=== PATIENT | female | born 2005 | race Caucasian/White ===

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

== ENCOUNTER → 2024-01-15 | Outpatient (CLI) | payer MEDICAID, SELFPAY ==
[2024-01-15 08:42] LABS: Hematocrit 42.4 % (37-47); Hemoglobin 13.2 g/dL (12.0-15.0); Mean Corp Hgb Conc 31.1 g/dL (32-36); Mean Corpuscular Hgb 28.9 pg (27.0-32.0); Mean Corpuscular Volume 92.8 fL (81-99); Mean Platelet Vol. 9.9 fl (6.2-12.0); Platelet Count 351 K/mm3 (150-450); RBC Distribution Width CV 13.1 % (11.6-14.6); RBC Distribution Width SD 44.5 fl (35.1-43.9); Red Blood Count 4.57 M/mm3 (4.2-5.4)
[2024-01-15 08:49] LABS: Internal QC Validated? YES +Cl - CLEAR BKGD; Pregnancy, Serum, hCG Quali. NEGATIVE Negative
[2024-01-15 08:55] LABS: Anion Gap 4 (5-15); BUN 8 mg/dL (7-18); BUN/Creat Ratio 10.6 RATIO (10-20); Calcium,Total 9.4 mg/dL (8.5-10.1); Chloride 112 mmol/L (98-107); Creatinine, Serum 0.76 mg/dL (0.55-1.02); EST Glomerular Filtration Rate 104 mL/min (>60); Est Glom Filt Rate - Afr Amer 126 mL/min (>60); Glucose 101 mg/dL (74-106); Potassium 3.5 mmol/L (3.5-5.1); Sodium Level 141 mmol/L (136-145)
--- NOTE | 2024-01-16 08:50 | PCM.TILTTABL ---
Staff Staff: Dora Adhikari Summary Pre Test Resting HR: 88 Pre Test Resting BP: 120/77 Minimum Test HR: 80 Maximum Test HR: 133 Minimum Test BP: 97/60 Maximum Test BP: 137/116 Physician Tilt Table Report Patient's Physicians Primary Care Physician: Dedrick Boone Indications/Diagnosis: Syncope Procedure Comments: The patient was brought to the noninvasive lab in the postabsorptive state. Initial blood pressure as well as heart rate was obtained with EKG. EKG demonstrated sinus rhythm with a rate of 79 bpm. The patient was placed in the 70 degree head upright tilt position. Initial heart rate was 88 bpm with a blood pressure of 120/77 mmHg. The patient was kept in this position for approximately 30 minutes. Continuous EKG and blood pressure monitoring were obtained. Patient experienced symptoms of ears ringing but no significant hemodynamic abnormalities were noted. There was mild depression in the blood pressure to 97/60 with a concomitant increase in the heart rate of 129 bpm. Patient felt mildly lightheaded at that time. Test ended after 30 minutes and post procedure vitals were noted to be normal. Summary: Mild orthostatic changes with tilt table testing. No obvious syncope noted
[2024-01-16 08:54] VITALS: BP 120/77; BP 137/116; BP 97/60
== END | disposition home or self-care (01) ==
LOC: CVS 08:26
PROVIDERS: PCP Internal Medicine; Referring Provider Internal Medicine Cardiovascular Disease; Visit Provider Internal Medicine Cardiovascular Disease
DX: R55 Syncope and collapse (principal); D64.9 Anemia, unspecified
CPT/HCPCS: 36415; 80048; 84703; 85027; 93660; J7040

== ENCOUNTER 2024-02-11 00:10 | Emergency (ER) | payer MEDICAID, SELFPAY ==
[2024-02-11 00:11] VITALS: BP 130/109; PULSE 100; RESP 16; TEMP 36.7; O2SAT 100; BMI 31.5
--- OUTSIDE RECORDS SUMMARY | 2024-02-11 00:34 | XMS RPT_ITS | CCD ---
Author Name Unknown Address [address] [facility] [address] [place] [address] Organization [facility] Care Team Providers Care Information Developer Name Role Phone AMBROCIO TADEO Unavailable Unavailable LINDA, LAURA Unavailable Unavailable LINDA, LAURA Unavailable Unavailable CARLOS MONTE Unavailable Unavailable LINDA, LAURA Unavailable Unavailable LINDA LAURA Unavailable Unavailable Rell Hamilton MD Primary Care Provider [phone] Rell Hamilton MD Primary Care Provider [phone] Rell Hamilton MD Primary Care Provider [phone] RELL HAMILTON Referring Unavailable RELL HAMILTON Primary Care Unavailable Frieda Boone MD Primary Care Provider [phone] Rell Hamilton MD Primary Care Provider OMID GLEASON Referring Unavailable RELL HAMILTON Primary Care Unavailable ЕКАТЕРИНА ROY Attending Unavailable RELL HAMILTON Primary Care Unavailable RELL HAMILTON Attending Unavailable RELL HAMILTON Primary Care Unavailable OMID GLEASON Referring Unavailable RELL HAMILTON Primary Care Unavailable RELL HAMILTON A Primary Care Unavailable ALICIA HAMILTONREY A Primary Care Unavailable RELL HAMILTON Referring Unavailable ALICIA HAMILTONREY A Primary Care Unavailable RELL HAMILTON A Referring Unavailable RELL HAMILTON Attending Unavailable RELL HAMILTON A Primary Care Unavailable RELL HAMILTON A Referring Unavailable ALICIA HAMILTONREY A Primary Care Unavailable ALFONSO, RELL A Primary Care Unavailable GUILLERMINA NETTLES Attending Unavailable RELL HAMILTON Primary Care Unavailable GUILLERMINA NETTLES Referring Unavailable FRIEDA BOONE Primary Care Unavailable CATRACHO HASSAN Attending Unavailable OMID GLEASON Referring Unavailable ALFONSO, RELL A Primary Care Unavailable BENIGNOЕКАТЕРИНА MCCLURE Referring Unavailable RELL HAMILTON Primary Care Unavailable OMID GLEASON Attending Unavailable ONURKEYONASaloni EFEWONGBE B Primary Care Unavailable ONURKEYONASaloni, EFEWONGBE B Primary Care Unavailable OMID GLEASON Referring Unavailable RELL HAMILTON A Primary Care Unavailable OMID GLEASON Referring Unavailable RELL HAMILTON A Primary Care Unavailable RELL HAMILTON A Primary Care Unavailable OMID GLEASON Referring Unavailable DMITRY EFEWONGBE B Primary Care Unavailable OMID GLEASON Attending Unavailable DMITRY, EFEWONGBE B Primary Care Unavailable RELL HAMILTON A Primary Care Unavailable OMID GLEASON Attending Unavailable ROMAN GUILLERMINA Referring Unavailable RELL HAMILTON Primary Care Unavailable OMID GLEASON Referring Unavailable RELL HAMILTON A Primary Care Unavailable RELL HAMILTON Attending Unavailable OMID GLEASON Referring Unavailable RELL HAMILTON A Primary Care Unavailable Allergies Allergy Classification Reported Allergen(s) Allergy Type Date of Onset Reaction(s) Facility (13 sources) Aspirin / oxyCODONE Hydrochloride / oxyCODONE terephthalate; Translations: [OXYCODONE [id number]] Drug [facility] Work Phone: (5 sources) POISON JACLYN EXTRACT; Translations: [POISON JACLYN EXTRACT] Drug Allergy 11-30-2023 Rash [facility] Medications Current Medications Medication Drug Class(es) Dates Sig (Normalized) Sig (Original) methylPREDNISolone (4 sources) Corticosteroid Start: 05-25-2023 End: 05-31-2023 methylPREDNISolone (MEDROL, WOOD,) 4 mg Dose-Pack Follow dosing instructions, take with food. 21 tablet 0 05/25/2023 05/31/2023 Active Completed/Discontinued Medications Medication Drug Class(es) Dates Sig (Normalized) Sig (Original) ascorbic acid 1000 mg oral tablet (8 sources) Vitamin C take 1 tablet by once daily Ascorbic Acid (VITAMIN C) 1,000 mg tablet Take 1,000 mg by mouth once daily. 0 Active Problems Active Problems Problem Classification Problem Date Documented Date Episodic/Chronic Anxiety disorders (20 sources) Mild anxiety; Translations: [Anxiety disorder, unspecified] Onset: 04-14-2023 04-15-2023 Chronic Esophageal disorders (20 sources) Gastroesophageal reflux disease; Translations: [Gastro-esophageal reflux disease without esophagitis] Onset: 05-25-2023 Chronic Headache; including migraine (20 sources) Migraine without aura, not refractory ; Translations: [Migraine without aura, not intractable, with status migrainosus] Onset: 03-06-2018 03-06-2018 Chronic Menstrual disorders (8 sources) Menorrhagia; Translations: [Excessive and frequent menstruation with regular cycle] Onset: 04-20-2023 Chronic Mood disorders (20 sources) Mild depression; Translations: [Mild depression] Onset: 07-04-2018 07-04-2018 Chronic Other aftercare (2 sources) meterman (current) use of hormonal contraceptives; Translations: [meterman (current) use of hormonal contraceptives] Onset: 11-02-2023 Episodic Other lower respiratory disease (1 source) H/O: respiratory disease; Translations: [Personal history of other diseases of the respiratory system] Episodic Other non-traumatic joint disorders (4 sources) Hypermobility of joint; Translations: [Joint derangement, unspecified] Onset: 12-04-2023 12-04-2023 Episodic Other non-traumatic joint disorders (1 source) [...] Bleeds easily; Translations: [Hemorrhagic condition, unspecified] Onset: 06-19-2023 Episodic Contraceptive and procreative management (5 sources) Encounter for surveillance of injectable contraceptive; Translations: [Encounter for initial prescription of contraceptives, unspecified] Onset: 2023 Episodic Deficiency and other anemia (1 source) Iron deficiency anemia, unspecified; Translations: [Iron deficiency anemia, unspecified iron deficiency anemia type] Onset: 09-11-2023 Episodic Immunizations and screening for infectious disease (14 sources) Patient encounter status; Translations: [Encounter for immunization] Onset: 05-25-2023 Episodic Malaise and fatigue (3 sources) Fatigue; Translations: [Other fatigue] Onset: 2023 Episodic Nutritional deficiencies (3 sources) Ascorbic acid deficiency; Translations: [Ascorbic acid deficiency] Onset: 09-11-2023 06-22-2023 Episodic Other and unspecified benign neoplasm (20 [...] Vital Sign Value Performing Clinician Michaela franco 01-18-2024 09:26-0500 Diastolic blood pressure 80 mm[Hg] Nurse Dona Work Phone: [facility] 01-18-2024 09:26-0500 Systolic blood pressure 108 mm[Hg] Nurse Dona Work Phone: [facility] 05-25-2023 15:09-0400 Body weight 92.53 kg Nurse Dona Work Phone: [facility] 05-25-2023 11:17-0400 Body weight 93.44 kg Rell Hamilton MD Work Phone: [facility] 05-25-2023 11:17-0400 Diastolic blood pressure 70 mm[Hg] Rell Hamilton MD Work Phone: [facility] 05-25-2023 11:17-0400 Heart rate 72 /min Rell Hamilton MD Work Phone: [facility] 05-25-2023 11:17-0400 Respiratory rate 16 /min Rell Hamilton MD Work Phone: [facility] 05-25-2023 11:17-0400 Systolic blood pressure 112 mm[Hg] Rell Hamilton MD Work Phone: [facility] 04-06-2023 13:29-0400 Body height 175.8 cm Omid Masci DO Work Phone: [facility] 04-06-2023 13:29-0400 Body temperature 98.29 [degF] Omid Masci DO Work Phone: [facility] 04-06-2023 13:29-0400 Body weight 95.48 kg Omid Masci DO Work Phone: [facility] 04-06-2023 13:29-0400 Diastolic blood pressure 88 mm[Hg] Omid Masci DO Work Phone: [facility] 04-06-2023 13:29-0400 Heart rate 100 /min Omid Masci DO Work Phone: [facility] 04-06-2023 13:29-0400 SaO2% (BldA) [Mass fraction] 96 % Omid Masci DO Work Phone: [facility] 04-06-2023 13:29-0400 Systolic blood pressure 124 mm[Hg] Omid Masci DO Work Phone: [facility] 2023 10:32-0400 Body weight 97.07 kg Guillermina Nettles APRN.LUNCHROOM SUPERVISOR Work Phone: [facility] 2023 10:32-0400 Diastolic blood pressure 64 mm[Hg] Guillermina Nettles APRN.LUNCHROOM SUPERVISOR Work Phone: [facility] 2023 10:32-0400 Heart rate 84 /min Guillermina Nettles APRN.LUNCHROOM SUPERVISOR Work Phone: [facility] 2023 10:32-0400 Respiratory rate 14 /min Guillermina Nettles APRN.LUNCHROOM SUPERVISOR Work Phone: [facility] 2023 10:32-0400 Systolic blood pressure 108 mm[Hg] Guillermina Nettles APRN.LUNCHROOM SUPERVISOR Work Phone: [facility] 04-27-2022 15:52-0400 Body weight 93.44 kg Nurse Wstr Work Phone: [facility] 04-27-2022 15:52-0400 Diastolic blood pressure 76 mm[Hg] Nurse Wstr Work Phone: [facility] 04-27-2022 15:52-0400 Systolic blood pressure 118 mm[Hg] Nurse Wstr Work Phone: [facility] Encounters Encounter Date Encounter Type Care Provider Facility Start: 01-23-2024 Telephone encounter Oni san MD Work Phone: Cardiology Procedures Date Procedure Procedure Detail Performing Clinician Start: 06-07-2023 Us transvaginal Rell Hamilton MD Work Phone: Start: 04-09-2023 Antibody screen OMID SNIDER Plan of Treatment Date Care Activity Detail Author Start: 12-21-2033 Urine microalbumin profile DTa P,Tdap,Td Vaccine (9 - Td or Tdap) [facility] Start: 03-13-2026 Urine microalbumin profile [facility] Start: 05-26-2024 HPV VACCINE (2 - 2-d ose series) HPV VACCINE (2 - 2-dose series) [facility] Immunizations Immunization Date Immunization Notes Care Provider Fa saad 05-19-2022 COVID-19 vaccine, ag e 12+ yr (PFIZER-BIONTECH - ALCANTAR TOP) Nv Nurse Work Phone: [facility] Work Phone: 04-27-2022 COVID-19 vaccine, ag e 12+ yr (PFIZER-BIONTECH - ALCANTAR TOP) Nv Nurse Work Phone: [facility] Work Phone: 06-10-2021 meningococcal polysaccharide (groups A, C, Y and W-135) diphtheria toxoid conjugate vaccine (MCV4P) Nv Nurse Work Phone: [facility] Work Phone: 03-13-2016 diphtheria, tetanus toxoids and acellular pertussis vaccine Mi Nurse Work Phone: [facility] 03-13-2016 meningococcal polysaccharide (groups A, C, Y and W-135) diphtheria toxoid conjugate vaccine (MCV4P) Mi Nurse Work Phone: [facility] 03-13-2016 tetanus toxoid, redu kody diphtheria toxoid, and acellular pertussis vaccine, adsorbed Mi Nurse Work Phone: [facility] Work Phone: 03-13-2008 diphtheria, tetanus toxoids and acellular pertussis vaccine Mi Nurse Work Phone: [facility] 03-13-2008 poliovirus vaccine, inactivated Mi Nurse Work Phone: [facility] 03-11-2008 measles, mumps and rubella virus vaccine Mi Nurse Work Phone: [facility] 03-05-2008 varicella virus vaccine Mi N urse Work Phone: [facility] 10-02-2006 hepatitis A vaccine, unspecified formulation Mi Nurse Work Phone: [facility] 03-19-2006 hepatitis A vaccine, unspecified formulation Mi Nurse Work Phone: [facility] 07-25-2005 diphtheria, tetanus toxoids and acellular pertussis vaccine Mi Nurse Work Phone: [facility] 07-25-2005 pneumococcal conjuga te vaccine, 13 valent Mi Nurse Work Phone: [facility] 07-25-2005 varicella virus vaccine Mi N urse Work Phone: [facility] 03-15-2005 haemophilus influenz ae type b vaccine, HbOC conjugate Mi Nurse Work Phone: [facility] 03-15-2005 hepatitis B vaccine, pediatric or pediatric/adolescent dosage Mi Nurse Work Phone: [facility] Work Phone: 03-15-2005 measles, mumps and rubella virus vaccine Mi Nurse Work Phone: [facility] 2004 poliovirus vaccine, inactivated Mi Nurse Work Phone: [facility] 2004 diphtheria, tetanus toxoids and acellular pertussis vaccine Mi Nurse Work Phone: [facility] 2004 haemophilus influenz ae type b vaccine, HbOC conjugate Mi Nurse Work Phone: [facility] 2004 pneumococcal conjuga te vaccine, 13 valent Mi Nurse Work Phone: [facility] 2004 diphtheria, tetanus toxoids and acellular pertussis vaccine Mi Nurse Work Phone: [facility] 2004 haemophilus influenz ae type b vaccine, HbOC conjugate Mi Nurse Work Phone: [facility] 2004 pneumococcal conjuga te vaccine, 13 valent Mi Nurse Work Phone: [facility] 2004 poliovirus vaccine, inactivated Mi Nurse Work Phone: [facility] 2004 diphtheria, tetanus toxoids and acellular pertussis vaccine Mi Nurse Work Phone: [facility] 2004 poliovirus vaccine, inactivated Mi Nurse Work Phone: [facility] 2004 haemophilus influenz ae type b vaccine, HbOC conjugate Mi Nurse Work Phone: [facility] 2004 hepatitis B vaccine, pediatric or pediatric/adolescent dosage Mi Nurse Work Phone: [facility] Work Phone: 2004 pneumococcal conjuga te vaccine, 13 valent Mi Nurse Work Phone: [facility] 2004 hepatitis B vaccine, pediatric or pediatric/adolescent dosage Mi Nurse Work Phone: [facility] Work Phone: Payers Date Payer Category Payer Medicaid [employer] [employer] [id number] 2022-Present [phone] [address] [place] [address] Medicaid [id number] 2022 Medicaid [id number] 2021 Private Health Insurance TAMY AMARALP [id number] 2021-Present [phone] [address] [place] [address] Open Access [id number] 2021 Private Health Insurance TAMY BARGER OAP [id number] 2021-Present [phone] [address] [place] [address] Open Access [id number] Private Health Insurance [id number] Social History Date Type Detail Facility Start: 11-25-2012 End: 07-11-2022 Tobacco smoking status NHIS Never smoked tobacco [facility] Start: 11-25-2012 End: 07-11-2022 Tobacco use and exposure Smokeless tobacco non-user [facility] Start: 02-07-2022 End: 01-18-2024 Alcohol intake Current non-drinker of alcohol (finding) [facility] Start: 2004 Sex Assigned At Not on file C [facility] Start: 04-17-2022 End: 04-27-2022 Exposure to SARS-CoV-2 (event) Not sure [facility] Start: 02-21-2023 History SDOH Alcohol Frequency 1 [facility] Start: 02-21-2023 History SDOH Alcohol Std Drinks 0 [facility] Start: 02-21-2023 History SDOH Social Connections Phone 5 [facility] Start: 02-21-2023 History SDOH Social Connections [facility] Start: 02-21-2023 History SDOH Social Connections Living 7 [facility] Start: 02-21-2023 History SDOH Physica l Activity MPS 15 [facility] Start: 02-21-2023 History SDOH Stress 2 [facility] Start: 02-21-2023 History SDOH Financial 4 [facility] Start: 2004 Sex Assigned At Female C [facility] Start: 02-21-2023 End: 04-06-2023 History of Social function [facility] Start: 02-21-2023 End: 04-06-2023 Social connection and isolation panel [facility] Do you belong to any clubs or organizations such as orthodox groups, unions, fraternal or athletic groups, or school groups? Yes [facility] Are you now , , , , never or living with a partner? Never [facility] How often to you hav e a drink containing alcohol? Never [facility] How many standard dr inks containing alcohol do you have on a typical day? Patient does not drink [facility] How hard is it for y ou to pay for the very basics like food, housing, medical care, and heating Not very hard [facility] Do you feel stress - tense, restless, nervous, or anxious, or unable to sleep at night because your mind is troubled all the time - these days [OSQ] Only a little [facility] (I/We) worried wheth er (my/our) food would run out before (I/we) got money to buy more. Never true [facility] In the past 12 month s, was there a time when you were not able to pay the mortgage or rent on time? No [facility] Start: 02-21-2023 Gender identity Identifies as female gender (finding) [facility] Start: 02-21-2023 Sexual orientation Heterosexual (jason covarrubias) [facility] Clinical Notes 04-27-2022 to 01-23-2024 Telephone Encounter - Miriam Love - 01/23/2024 4:08 PM Stephie Barr RN - 01/18/2024 9:19 AM ESTTelephone Encounter - Stephie Lopez RN - 01/15/2024 11:43 AM ESTPatient Instructions Note Date & Type Note Facility 01-23-2024 Miscellaneous Notes Referral and outside medical records scanned into [employer]. Referral routed to appointment desk for appropriate scheduling. documented in this encounter [facility] 01-18-2024 Note HNO ID: [id number] Author: STEPHIE LOPEZ RN Service: ? Author Type: Registered Nurse Type: Progress Notes Filed: 01/18/2024 09:31 Note Text: Patient identified by name and date of . Lu Timmons is here for a Depo Provera injection. Patient brought medication. Date last injected: 11/02/23 at [facility] Depo-Provera, 150 mg, administered IM left upper quadrant gluteus, Lot # [id number], expiration date 04/25/2025. Depo-Provera was given without incident. Date of last menses: Patient's last menstrual period was 03/10/2021 (within days). Irregular bleeding - No Menses ceased - Yes STD prevention discussed: Yes Patient instructed to return to clinic on 11 WEEKS. [email or web address] Provider Dr. Cavazos was present in office at time of injection. Stephie Lopez RN [facility] 01-18-2024 History of Present illness Narrative Patient identified by name and date of . Lu Timmons is here for a Depo Provera injection. Patient brought medication. Date last injected: 11/02/23 at [facility] Depo-Provera, 150 mg, administered IM left upper quadrant gluteus, Lot # [id number], expiration date 04/25/2025. Depo-Provera was given without incident. Date of last menses: Patient's last menstrual period was 03/10/2021 (within days). Irregular bleeding - No Menses ceased - Yes STD prevention discussed: Yes Patient instructed to return to clinic on 11 WEEKS. [email or web address] Provider Dr. Cavazos was present in office at time of injection. Stephie Lopez RN documented in this encounter [facility] 01-15-2024 Miscellaneous Notes Annual scheduled 04/10/24 and next depo is 01/18/24. [facility] and she is home this week. [facility] unable to transfer. Requested Prescriptions Pending Prescriptions Disp Refills medroxyPROGESTERone (DEPO-PROVERA) 150 mg/mL 1 mL 0 Sig: use as directed at physician's office EVERY 11 WEEKS Stephie Lopez RN documented in this encounter [facility] 12-04-2023 Note HNO ID: [id number] Author: CATRACHO HASSAN PT Service: ? Author [...] PHYSICAL THERAPY EVALUATION PLAN OF CARE: Assessment: Lu Timmons presents with diagnosis of hypermobility that [...] of Visits Planned: 1 Planned Treatment Interventions: Self-jail management (20985) PLAN FOR NEXT VISIT: none, discharged Patient [...] she needs to. 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 Patient also has Reynauds, this causes more joint issues when it is cold. Patient would like to receive measurements for possible hypermobility today, and is not seeking a fdc physical therapy plan of care Functional Limitations: [...] Plan of Care TREATMENT: PT Treatment Interventions: Self-Longterm Management Evaluation Self-Longterm Management: 1: Discussed todays exam, possible clinical [...] 1002 Session Stop Time : 1035 Catracho Hassan, JENNIFER [facility] 11-30-2023 Miscellaneous Notes Check out comments: Referral to PT here. Follow up to be scheduled pending results. LM for patient to return call. When she calls, please advise that the order is fixed and we can schedule her here with Catracho as directed by Dr. Gleason and geovanny. Nohemy Weeks documented in this encounter [facility] 11-30-2023 Note HNO ID: [id number] Author: OMID GLEASON, DO Service: ? Author [...] No hemarthrosis. Excision left temporal lesion in [id number]. No bleeding. Underwent surgery for left knee [...] knee. Was seen by vascular surgery at [facility]. ABIs were normal bilaterally. Duplex ultrasound both [...] for [place] hypermobility assessment. -Echocardiogram scheduled at [facility]. -Possible genetic counseling referral based on above [...] to see the patient (reviewing records via [facility] electronic record), [id number] patient care, completing clinical documentation, obtaining and/or reviewing separately obtained history, performing a medically appropriate examination, counseling and educating the patient/family/caregiver, ordering medications, tests, or procedures, communicating with other HCPs (not separately reported), and communicating results to the patient/family/caregiver. Omid Gleason, DO [facility] 11-02-2023 Miscellaneous Notes Annual scheduled with DM 04/10/23. She is away at [facility] and that was first available that she will be home. Only wanted to see DM. Requested Prescriptions Pending Prescriptions Disp Refills medroxyPROGESTERone (DEPO-PROVERA) 150 mg/mL 1 mL 1 Sig: use as directed at physician's office EVERY 11 WEEKS Stephie Lopez RN documented in this encounter [facility] 10-31-2023 Miscellaneous Notes Records from mother received. Dr. Gleason will not send a referral because we have not seen the patient for this issue. I did forward the outside records on to [facility] and notify patient's mother that I did so. Caryl Fletcher LPN Patient was seen in the ED in [place] 10/23/2023 to r/o DVT d/t right leg pain. Venous duplex on 10/24/2023 was negative. Random bruising continues. 10/30/2023- right leg pain continued, went to urgent care in [place]. They recommended a referral to cardiology (patient was already scheduled) and to vascular surgery. PCP won't refer patient without an OV and patient can't be seen there until mid November. Patient is scheduled to see [facility] and patient's mother is asking that we send a referral. Patient's mother is faxing records from [place]. Caryl Fletcher LPN Mother called stating patient needs a referral for vascular surgeon. Patient was at an urgent care in [place] and they stated she needs this referral. They did not give her one. Mother called and scheduled appointment with [facility] and they are requesting a referral - diagnosis: positive for myalgia- r leg pain. Please fax to [phone] documented in this encounter [facility] 10-17-2023 Miscellaneous Notes Noted. Thank you. Omid Gleason DO Patient called in today wanting to let know that she was scheduled to see Dr.Cyril Baez today and they called her to reschedule due to an emergency. She is now scheduled to see him 11/14/23. Diamond Lopez Pss documented in this encounter [facility] 09-17-2023 Miscellaneous Notes Message sent to [...] will send a note to Dr. [facility] to see if she has any further thoughts on testing for other causes for her bleeding. Omid Gleason DO documented in this encounter [facility] 09-11-2023 Note HNO ID: [id number] Author: Omid Gleason DO Service: ? Author [...] No hemarthrosis. Excision left temporal lesion in [id number]. No bleeding. Bruises easily. Takes Mobic prn. [...] time. PAST MEDICAL HISTORY Diagnosis Date Adjustment disorder [facility] Migraine without aura and with status migrainosus, not intractable 03/06/2018 Mild anxiety 04/14/2023 Mild depression 07/04/2018 Multiple atypical nevi 07/04/2018 PAST SURGICAL HISTORY Procedure Laterality Date KNEE SURGERY HX Left 04/27/2021 KNEE SURGERY HX Right 01/2022 REMOVAL OF SKIN LESION Left 2008 face- removed by [facility] ALLERGIES Allergen Reactions Oxycodone Hcl-Oxyco* Hives [...] nondistended. No organo (more content not included)... [facility] 08-23-2023 Miscellaneous Notes Patient called needing order faxed to [facility] at [facility] at [phone]. Orders faxed. Confirmation scanned into [facility]. Nohemy Weeks Filed. Omid Gleason DO Please file order. Caryl Fletcher LPN Patient called back stating that she can have CBC drawn at school. Please fax order to [phone] Message relayed. Scheduled with patient LM for patient to return call. When she calls, please relay Dr. Gleason's message below and schedule. Nohemy Weeks I'm concerned about these random episodes of feeling if she is going to pass out. I suggest she go to the [facility]. Perhaps they can run a CBC at [...] states she will possibly be home from [place] on 09/04/23. Beatrice Mclaughlin LPN Patient called stating she has been having really bloody gums again and is asking if she is to see Dr. Gleason or if she needs to contact Dr. Roy at [facility]. documented in this encounter [facility] 06-22-2023 Miscellaneous Notes Pt. Notified vitamin [...] Omid Gleason DO documented in this encounter [facility] 06-19-2023 Note HNO ID: [id number] Author: Екатерина Roy DO Service: ? Author Type: Physician Type: Progress Notes Filed: 06/19/2023 6:14 PM Note Text: Hematologic Oncology and Blood Disorders PATIENT NAME: Lu Timmons DATE OF : 2005 ATTENDING STAFF: Nicolle Roy DO DATE OF SERVICE: June 19, 2023 REASON FOR CONSULT: Easy Bruising REQUESTING PHYSICIAN: Omid Gleason [address] [facility] [place] [address] HISTORY OF PRESENT ILLNESS: This patient was seen at the request of Dr. Omid Gleason for consultation with hematology regarding easy bruising. History was obtained from the patient and from review of the patient?s old medical records. Lu Timmons is a 18 year old female here today with her mother, Chika. She has a past medical history that is pertinent for anxiety, depression, migraines and recurrent meniscal knee injuries. As a child she had a benign skin lesion removed with sutures at [facility] at the time associated with [facility] on her face in 2008 without any [...] medroxyPROGESTERone 150 mg injection (DEPO-PROVERA) PREFERRED PHARMACY: [facility][id number] - [place] [address] - [address] [place] [address] - [phone] [id number] [address] [facility] [place] [address] [place]- [facility] [place] [address] - [address] - [phone] [facility] [address] PAST MEDICAL HISTORY Diagnosis Date Adjustment disorder [facility] Migraine without aura and with [...] Hyperlipidemia Maternal Grandfather (more content not included)... [facility] 06-12-2023 Miscellaneous Notes Surgery clearance form along with Dr. Gleason note has been faxed to Dr. Nava office. Spoke with Mi @ Dr. Nava office ,received fax and will discuss with dr. Nava. Sienna Laguna LPN Spoke with patient and mother. Lu's von Willebrand panel suggested no evidence of von Willebrand disease. Platelet function screening on that panel suggested normal closure times indicating normal platelet function. Testing was carried a step further with a platelet aggregation test which was normal. Both her aPTT and PT were normal. I had recommended further testing but per our discussion this evening, since Lu changed the dosing schedule of her iron, [...] also POA) is requesting a call at [phone] Spoke with pt. Given a different number. Sienna Laguna LPN Patient called stating she is not able to get an answer from the phone number listed below. Please advise. Contacted client services concerning lab test ordered by Dr. Gleason, but to be done at [facility], to see if there are any specific dates or times for labs to be done.Spoke with Tomeka Kirk drawn daily Reptilase mon-fri Platelet Flow by appt. Only needs scheduled 24 hrs. In advance [phone] Platelet transmission mon-fri Fibrinogen activity send out [...] to functional fibroginogen? Sienna Laguna LPN The student activities director she is going to see at [facility] next week suggested some other lab tests. Rather than weight to see her, I placed stat orders for that lab work but she will have to go to [facility] lab to have them drawn. I suggest we have someone from our lab double check with [facility] as to any restrictions as far as time or days of the week that these labs are drawn. Myles cannot clear her for upcoming surgery scheduled on the . It will have to be rescheduled. Omid Gleason DO documented in this encounter [facility] 06-07-2023 Note HNO ID: [id number] Author: Margarette Chua RDMS Service: ? Author Type: Chief Security Officer Type: Progress Notes Filed: 06/07/2023 2:08 PM Note Text: Radiology Service Progress Note PATIENT NAME: Lu Timmons DATE OF SERVICE: June 07, 2023 [...] RDMS RVT June 07, 2023 2:08 PM [facility] 06-07-2023 History of Present illness Narrative Radiology Service Progress Note PATIENT NAME: Lu Timmons DATE OF SERVICE: June 07, 2023 [...] 2023 2:08 PM documented in this encounter [facility] 06-07-2023 Miscellaneous Notes Message relayed to patient Message left for patient to contact office. Caryl Fletcher LPN Can let her know that the most recent lab testing shows some mild abnormality but I do not think those are clinically meaningful and contributing to her bleeding issue. Still awaiting one of the fibrinogen tests. I sent a note to one of the student activities director at [facility] to look things over so we may be able to keep her surgery scheduled for next week but as of right now I am not certain she can be cleared for it until we know whether or not there is a hematologic issue with her clotting capability. Omid Gleason DO documented in this encounter [facility] 06-04-2023 Miscellaneous Notes Spoke with pt and reviewed results and instructions from Dr Hamilton. States she scheduled what she was told to schedule. Advised her this nurse apologizes but pelvic US was not done. Pt was transferred to [facility] to schedule US. Samm Dill LPN Let [...] Kellie Warren RN documented in this encounter [facility] 06-01-2023 Miscellaneous Notes Spoke to patient and she will get US done and call to schedule Katy Saenz Ma Let patient know insurance is not going to cover and abdominal and pelvic CT. I have placed orders for a Abdominal US and pelvic US to eval her lower abdominal pain and weight loss. documented in this encounter [facility] 05-28-2023 Miscellaneous Notes Spoke with patient. Given message from provider's office. Patient verbalizes understanding. Yaneth Marshall RN Left message for patient to return call to office Jacquelin Javier Cma Let patient know her recent labs were all normal. documented in this encounter [facility] 05-28-2023 Miscellaneous Notes Patient returned call and wanted to schedule at [facility]. Transferred her to Cancer Answer line for scheduling. Nohemy Weeks Spoke with pt. Given information concerning lab results. Also sent information to pt. Via my chart. She will discuss with her mother and get back with us as far as scheduling appt. With Weapons Specialist at [facility]. Sienna Laguna LPN Can let her [...] it is best we refer her to [facility] hematology for any further work-up of bleeding problems. I have not been able to find anything obvious and the next steps are seeing someone who specializes further in bleeding disorders than I do. Also lab work can be done there onsite if needed. Omid Gleason DO [facility] Care Coordination FOLLOW-UP NOTE Spoke with Mom, questions answered. She ask that I speak with Lu regarding symptoms, etc. Spoke with patient and [...] repeat labs on Sunday, we will verify sharepoint designer developer for Sunday, we will call back with results and most likely refer to a student activities director at [facility] for consult. Patient states understanding and denies further questions. Call to lab and spoke with Lily, they have heard from sharepoint designer developer and all set to be her on 05/21/23 at 8am. Mi Blankenship RN Patient's mother/POA called in over frustrations re: issues with getting the platelet aggregation done as well as knowing what the plan of action is for the patient. Platelet aggregation is being rescheduled for 05/21/23 with a sharepoint designer developer. This PSS will contact the patient directly to schedule the lab draw and will coordinate the sharepoint designer developer. Platelet aggregation order WAS refiled. This PSS spoke with patient and rescheduled the lab and then spoke with laborer/grade check to coordinate sharepoint designer developer. entry level installation technician will coordinate sharepoint designer developer and document in appointment notes that sharepoint designer developer is scheduled. Lab to be drawn on [...] advise. Nohemy Weeks documented in this encounter [facility] 05-25-2023 Note HNO ID: [id number] Author: Marlys Billings LPN Service: ? Author Type: ? Type: Progress Notes Filed: 05/28/2023 7:25 AM Note Text: Patient identified by name and date of . Intake information documented in the prior visit with Dr. Hamilton today. Lu Timmons is here for a Depo Provera injection. Patient brought medication. Date last injected: 2023 Depo-Provera, 150 mg, administered IM right upper quadrant gluteus, Lot # [id number], expiration date 01/23/2025. Depo-Provera was given without incident. Date of last menses: Patient's last menstrual period was 03/10/2021 (within days). Irregular bleeding - No Menses ceased - Yes STD prevention discussed: Yes Patient instructed to return to clinic in 11 weeks. [email or web address] Provider Leidy Carr was present in office at time of injection. Marlys Billings LPN [facility] 05-25-2023 Miscellaneous Notes Called [facility] and spoke with Scottie in the pharmacy and explained that pt wanted to put a prescription in for the OTC dose of K+ to see if her insurance would cover it. Since it does not, the pharmacy just needs to let the pt know when she comes to brain picker the medication. Let pharmacist know that patient was wanting provider to send in script for the OTC form of her potassium 99 to see if insurance covered it. If that is not the case then just let patient know this when she picks up the script. Farhan pharmacist from [facility] Valentín calling with question regarding K+ prescription that was sent in this morning. He states K+ citrate 99 mg was ordered and it does not come that way. He says that is the OTC dose which is only 1-2 percent of daily need. If 99 mg is what provider wants, it needs to be K+ Gluconate 99 mg. documented in this encounter [facility] 05-25-2023 History of Present illness Narrative Patient identified by name and date of . Intake information documented in the prior visit with Dr. Hamilton today. Lu Timmons is here for a Depo Provera injection. Patient brought medication. Date last injected: 2023 Depo-Provera, 150 mg, administered IM right upper quadrant gluteus, Lot # [id number], expiration date 01/23/2025. Depo-Provera was given without incident. Date of last menses: Patient's last menstrual period was 03/10/2021 (within days). Irregular bleeding - No Menses ceased - Yes STD prevention discussed: Yes Patient instructed to return to clinic in 11 weeks. [email or web address] Provider Leidy Carr was present in office at time of injection. Marlys Billings LPN documented in this encounter [facility] 05-25-2023 Note HNO ID: [id number] Author: Rell Hamilton MD Service: ? Author Type: Physician Type: Progress Notes Filed: 05/25/2023 5:06 PM Note Text: Chief Complaint Patient presents with: Follow Up HPI Lu Timmons is a 18 year old female [...] fatigue. Seems daily. 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- 10 [...] PAST MEDICAL HISTORY Diagnosis Date Adjustment disorder [facility] Migraine without aura and with status migrainosus, not intractable 03/06/2018 Mild anxiety 04/14/2023 Mild depression 07/04/2018 Multiple atypical nevi 07/04/2018 Previous Surgical History PAST SURGICAL HISTORY Procedure Laterality Date KNEE SURGERY HX Left 04/27/2021 KNEE SURGERY HX Right 01/2022 REMOVAL OF SKIN LESION Left 2008 face- removed by oBaz Family History FAMILY HISTORY Problem Relation Age [...] nourished.. Neck: Supple, (more content not included)... [facility] 05-25-2023 History of Present illness Narrative Chief Complaint Patient presents with: Follow Up HPI Lu Timmons is a 18 year old female [...] fatigue. Seems daily. 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- 10 [...] PAST MEDICAL HISTORY Diagnosis Date Adjustment disorder [facility] Migraine without aura and with status migrainosus, not intractable 03/06/2018 Mild anxiety 04/14/2023 Mild depression 07/04/2018 Multiple atypical nevi 07/04/2018 Previous Surgical History PAST SURGICAL HISTORY Procedure Laterality Date KNEE SURGERY HX Left 04/27/2021 KNEE SURGERY HX Right 01/2022 REMOVAL OF SKIN LESION Left 2008 face- removed by [facility] [employer] Family History FAMILY HISTORY Problem Relation Age [...] Rell Hamilton MD documented in this encounter [facility] 05-24-2023 Miscellaneous Notes Order filed. Felicita Anthony APRN.CINTHYA Please see pended order below for MAR. Pt coming in 05/25/23. Mary Ellen Koehler LPN documented in this encounter [facility] 05-18-2023 Miscellaneous Notes Spoke with patient and scheduled lab and then coordinated medical lab tech instructor with [employer], who will also document in appointment note that courer is scheduled once it is scheduled. Nohemy Weeks Order filed. Omid Gleason DO Pt came in today for a lab draw. She was checked in, but the lab turned her away as a medical lab tech instructor was not scheduled for brain picker. I have placed the order again. PSS please schedule a lab apt with pt and then notify the lab so they can arrange sharepoint designer developer! Thanks Beatrice documented in this encounter [facility] 05-01-2023 Note HNO ID: [id number] Author: Samm Dill LPN Service: ? Author Type: ? Type: Progress Notes Filed: 05/01/2023 7:22 AM Note Text: . [facility] 05-01-2023 History of Present illness Narrative . documented in this encounter [facility] 04-30-2023 Note HNO ID: [id number] Author: Thao Dotson MA Service: ? Author Type: Art Museum Aide Type: Progress Notes Filed: 04/30/2023 5:03 PM Note Text: Scan on 04/26/2023 2:36 PM by External Provider, PERICOC: Miscellaneous Lab Thao Dotson MA [facility] 04-30-2023 History of Present illness Narrative Scan on 04/26/2023 2:36 PM by External Provider, MICHAEL: Miscellaneous Lab Thao Dotson MA documented in this encounter [facility] 04-25-2023 Miscellaneous Notes Lab scheduled Spoke [...] Omid Gleason DO documented in this encounter [facility] 04-16-2023 Note HNO ID: [id number] Author: Cathryn Schultz APRN.LUNCHROOM SUPERVISOR Service: ? Author Type: Nurse Practitioner Type: Progress Notes Filed: 04/16/2023 12:23 PM Note Text: Subjective The history is provided by the patient. No hotel general manager was used. JOAQUÍN Timmons is a 18 [...] use: No PAST MEDICAL HISTORY Diagnosis Date Adjustment disorder [facility] Migraine without aura and with status migrainosus, not intractable 03/06/2018 Mild anxiety 04/14/2023 Mild depression 07/04/2018 Multiple atypical nevi 07/04/2018 I have confirmed and edited as necessary, the [facility] Review of Systems Constitutional: Negative for [...] detail warranting prompt ER evaluation. Cathryn Schultz APRN.[facility] 04-14-2023 Note HNO ID: [id number] Author: Rell Hamilton MD Service: ? Author Type: Physician Type: Progress Notes Filed: 04/15/2023 12:33 PM Note Text: Chief Complaint Patient presents with: Recheck: Fatigue, nose bleeds HPI Lu Timmons is a 18 year old female [...] fatigue. Seems daily. 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 [facility] 04-06-2023 Note HNO ID: [id number] Author: Omid Gleason, DO Service: ? Author [...] No hemarthrosis. Excision left temporal lesion in [id number]. No bleeding. Bruises easily. Takes Mobic prn. Always fatigued. PAST MEDICAL HISTORY Diagnosis Date Adjustment [facility] Migraine without aura and with status migrainosus, not intractable 03/06/2018 Mild depression 07/04/2018 Multiple atypical nevi 07/04/2018 PAST SURGICAL HISTORY Procedure Laterality Date KNEE SURGERY HX Left 04/27/2021 KNEE SURGERY HX Right 01/2022 REMOVAL OF SKIN LESION Left 2008 face- removed by Hang w/ ALLERGIES No Known Allergies Current Outpatient Medications [...] rash. No petechiae. No obvious ecchymoses. NEUROLOGIC: vulcanizing machine operator II-XII are grossly intact. No focal motor weakness. LABORATORY DATA: Component Latest Ref Rng AND Units 2023 Iron 41 - 186 ug/dL 38 (L) TIBC 232 - 386 ug/dL 331 Transferrin Saturation 15.0 - 57.0 % 11.5 (L) Ferritin 14.7 - 205.1 ng/mL 91.6 V (more content not included)... [facility] 04-06-2023 History of Present illness Narrative Patient [...] No hemarthrosis. Excision left temporal lesion in 5939-2160. No bleeding. Bruises easily. Takes Mobic prn. Always fatigued. PAST MEDICAL HISTORY Diagnosis Date [facility] Migraine without aura and with status migrainosus, not intractable 03/06/2018 Mild depression 07/04/2018 Multiple atypical nevi 07/04/2018 PAST SURGICAL HISTORY Procedure Laterality Date KNEE SURGERY HX Left 04/27/2021 KNEE SURGERY HX Right 01/2022 REMOVAL OF SKIN LESION Left 2008 face- removed by Hang w/ ALLERGIES No Known Allergies Current Outpatient Medications [...] rash. No petechiae. No obvious ecchymoses. NEUROLOGIC: vulcanizing machine operator II-XII are grossly intact. No focal motor [...] a recent CBC in February at the [facility] that revealed a platelet count of 430,000 [...] which included preparing to see the patient, [id number] patient care, completing clinical documentation, obtaining and/or reviewing separately obtained history, performing a medically appropriate examination, counseling and educating the patient/family/caregiver, ordering medications, tests, or procedures, communicating with other HCPs (not separately reported), and communicating results to the patient/family/caregiver. Omid Gleason DO documented in this encounter [facility] 03-13-2023 Miscellaneous Notes Received pt's lab results. Samm Dill LPN Scan on 03/13/2023 10:02 AM by External Provider: Miscellaneous Lab documented in this encounter [facility] 03-12-2023 Miscellaneous Notes I called and [...] you. Jocelyn SHAIKH documented in this encounter [facility] 03-12-2023 Miscellaneous Notes Patient notified and [...] high fiber diet. documented in this encounter [facility] 2023 Note HNO ID: [id number] Author: Marlys Billings LPN Service: ? Author Type: ? Type: Progress Notes Filed: 2023 1:27 PM Note Text: The patient is here for an injection of Depoprovera. Dose: 150 mg. Route: Intramuscular Site: left upper quadrant gluteus Next injection due: 05/25/2023- 11 weeks See Mar for medication documentation Marlys Billings LPN [facility] 2023 Note HNO ID: [id number] Author: Guillermina Nettles APRN.CINTHYA Service: ? Author Type: Nurse Practitioner Type: Progress Notes Filed: 2023 11:10 AM Note Text: Chief Complaint Patient presents with: Follow Up HPI Lu Garrett is a 18 year old female [...] PAST MEDICAL HISTORY Diagnosis Date Adjustment disorder [facility] Migraine without aura and with status migrainosus, not intractable 03/06/2018 Mild depression 07/04/2018 Multiple atypical nevi 07/04/2018 Previous Surgical History PAST SURGICAL HISTORY Procedure Laterality Date KNEE SURGERY HX Left 04/27/2021 REMOVAL OF SKIN LESION Left 2008 face- removed by [facility] Family History FAMILY HISTORY Problem Relation Age [...] - FAMOTIDINE 20 MG TABLET Guillermina Nettles APRN.[facility] 2023 Instructions Guillermina Nettles APRN.CNP - 2023 11:10 AM EDT Complete lab work Start famotidine Follow up in [address] Hamilton documented in this encounter [facility] 2023 History of Present illness Narrative Chief Complaint Patient presents with: Follow Up HPI Lu Garrett is a 18 year old female [...] History PAST MEDICAL HISTORY Diagnosis Date Adjustment [facility] Migraine without aura and with status migrainosus, [...] series) due on 01/04/2019 GC (GONORRHEA) SCREENING () Never done HEPATITIS C SCREENING Never done HIV SCREENING Never done CHLAMYDIA SCREENING () Never done COVID-19 VACCINE(3 - Booster for [...] - FAMOTIDINE 20 MG TABLET Guillermina Nettles APRN.CINTHYA documented in this encounter [facility] 03-02-2023 Miscellaneous Notes Next depo scheduled for 03/09/23. Requested Prescriptions Pending Prescriptions Disp Refills medroxyPROGESTERone (DEPO-PROVERA) 150 mg/mL 1 mL 2 Sig: use as directed at physician's office EVERY 11 WEEKS Stephie Lopez RN documented in this encounter [facility] 02-23-2023 Note HNO ID: [id number] Author: Rell Hamilton MD Service: ? Author Type: Physician Type: Progress Notes Filed: 02/23/2023 8:33 PM Note Text: This is a virtual encounter. It required patient-provider interaction for the medical decision making as documented below. The patient is identified by name and birthday. Patient location: [facility] The patient consented to this type of encounter since it was performed by phone / virtually due to the COVID-19 epidemic as an effort to protect patients and minimize exposure. Chief Complaint Patient presents with: constant illnesses, nose bleeds, HPI Lu Garrett is a 17 year old female [...] PAST MEDICAL HISTORY Diagnosis Date Adjustment disorder [facility] Migraine without aura and with [...] the ENT she was referred to in [place] 2. History of frequent URI - ICD9: V12.69, ICD10: Z87.09 Check - TSH BLD - COMP METABOLIC PANEL - T4 FREE/FREE THYROX - COMPLEMENT DEFICIENCY ASSAY 3. Fatigue, unspecified type - ICD9: 780.79, ICD10: R53.83 Check - TSH BLD - COMP METABOLIC PANEL - CBC + DIFF - T4 FREE/FREE THYROX Rell Hamilton MD [facility] 02-23-2023 History of Present illness Narrative This is a virtual encounter. It required patient-provider interaction for the medical decision making as documented below. The patient is identified by name and birthday. Patient location: [facility] The patient consented to this type of encounter since it was performed by phone / virtually due to the COVID-19 epidemic as an effort to protect patients and minimize exposure. Chief Complaint Patient presents with: constant illnesses, nose bleeds, HPI Lu Garrett is a 17 year old female [...] PAST MEDICAL HISTORY Diagnosis Date Adjustment disorder [facility] Migraine without aura and with [...] the ENT she was referred to in [place]. History of frequent URI - ICD9: V12.69, ICD10: Z87.09 Check - TSH BLD - COMP METABOLIC PANEL - T4 FREE/FREE THYROX - COMPLEMENT DEFICIENCY ASSAY 3. Fatigue, unspecified type - ICD9: 780.79, ICD10: R53.83 Check - TSH BLD - COMP METABOLIC PANEL - CBC + DIFF - T4 FREE/FREE THYROX Rell Hamilton MD documented in this encounter [facility] 12-21-2022 Note Pt here for depo joceline t. Scheduled next shot upon departure. [facility] 07-10-2022 Miscellaneous Notes Patient is coming in for her Depo shot tomorrow (07-11) and needs her script sent. Please call her at [phone] when sent. documented in this encounter [facility] 05-19-2022 History of Present illness Narrative Patient presents for COVID vaccine. Denies any problems at this time. Tolerated injection well. Jocelyn Monroy LPN documented in this encounter [facility] 04-27-2022 History of Present illness Narrative Patient identified by name and date of . Lu Timmons is here for a Depo Provera injection. Patient brought medication. Date last injected: 02/07/22 Depo-Provera, 150 mg, administered IM left upper quadrant gluteus, Lot # [id number], expiration date 01/23/2024. Depo-Provera was given without incident. Date of last menses: Patient's last menstrual period was 03/10/2021 (within days). Irregular bleeding - No Menses ceased - Yes STD prevention discussed: Yes Patient instructed to return to clinic in 12 weeks. [email or web address] Provider Veena Cavazos DO was present in office at time of injection. Sultana Leigh RN documented in this encounter [facility] 04-27-2022 History of Present illness Narrative Patient presents for COVID vaccine. Denies any problems at this time. Tolerated injection well. Jocelyn Monroy LPN documented in this encounter [facility] Encounter for management and injection of depo-Provera- Primary Surveillance of other previously prescribed contraceptive method [facility] Diagnosis Encounter for immunization- Primary Need for other specified prophylactic vaccination against single bacterial disease [facility] Diagnosis Encounter for management and injection of depo-Provera Surveillance of other previously prescribed contraceptive method Menorrhagia with regular cycle Excessive or frequent menstruation [facility] Diagnosis Bleeding from the nose- Primary Epistaxis History of frequent URI Fatigue, unspecified type [facility] Diagnosis Encounter for management and injection of depo-Provera Surveillance of other previously prescribed contraceptive method Menorrhagia with regular cycle Excessive or frequent menstruation [facility] Diagnosis Fatigue, unspecified type- Primary Family history of cancer in mother Gastroesophageal reflux disease, unspecified whether esophagitis present [facility] Diagnosis Menorrhagia with irregular cycle- Primary Excessive or frequent menstruation Epistaxis Family history of cancer in mother [facility] Diagnosis Epistaxis- Primary Menorrhagia with irregular cycle Excessive or frequent menstruation [facility] Diagnosis Menorrhagia with irregular cycle- Primary Excessive or frequent menstruation Epistaxis [facility] Diagnosis Encounter for management and injection [...] single bacterial disease [facility] Diagnosis Mild anxiety- Primary Anxiety state, unspecified Mild depression Depressive disorder, not elsewhere classified Gastroesophageal reflux disease, unspecified whether esophagitis present Weight loss, unintentional Loss of weight Lower abdominal pain Abdominal pain, other specified site Rash Rash and other nonspecific skin eruption documented in this encounter [facility] note* Diagnosis Encounter for management and injection of depo-Provera- Primary Surveillance of other previously prescribed contraceptive method documented in this encounter [facility] note* Diagnosis Bleeding diathesis (HCC)- Primary Unspecified hemorrhagic conditions [facility] Diagnosis Lower abdominal pain- Primary Abdominal pain, other specified site Weight loss, unintentional Loss of weight [facility] Diagnosis Lower abdominal pain Abdominal pain, other specified site Weight loss, unintentional Loss of weight [facility]* Diagnosis Bleeding diathesis (HCC)- Primary Unspecified hemorrhagic conditions documented in this encounter [facility] note* Diagnosis Vitamin C deficiency- Primary Ascorbic acid deficiency [facility]* Diagnosis Bleeding diathesis (HCC)- Primary Unspecified hemorrhagic conditions Easy bruising Other symptoms involving skin and integumentary tissues documented in this encounter [facility] note* Diagnosis Vitamin C deficiency- Primary Ascorbic acid deficiency Easy bruising Other symptoms involving skin and integumentary tissues [facility]* Diagnosis Lower abdominal pain Abdominal pain, other specified site Weight loss, unintentional Loss of weight documented in this encounter [facility] note* Diagnosis Encounter for management and injection of depo-Provera Surveillance of other previously prescribed contraceptive method Menorrhagia with regular cycle Excessive or frequent menstruation [facility] Diagnosis Encounter for management and injection of depo-Provera Surveillance of other previously prescribed contraceptive method Menorrhagia with regular cycle Excessive or frequent menstruation [facility] Diagnosis Encounter for management and injection of depo-Provera- Primary Surveillance of other previously prescribed contraceptive method documented in this encounter [facility] for referral (narrative)* Diagnostic Procedure Only (Routine) - Pending Review Specialty Diagnoses / Procedures Referred By Bina clancy Referred To Contact US IMAGING Diagnoses Lower abdominal pain Weight loss, unintentional Procedures US FEMALE PELVIS TRANSVAG US TRANSVAGINAL Rell Hamilton MD [address] [place] [address] Us Imaging Referral ID Status Reason Start Date Expiration Date Visits Requested Visits Authorized [id number] Pending Review Auto-Generat ed Referral 05/31/2023 06/29/2024 1 1 * Diagnostic Procedure Only (Routine) - Authorized Specialty Diagnoses / Procedures Referred By Contac t Referred To Contact US IMAGING Diagnoses Lower abdominal pain Weight loss, unintentional Procedures US ABDOMEN COMPLETE US ABDOMINAL REAL TIME W/IMAGE DOCUMENTATION Rell Hamilton MD [address] [place] [id number] Us Imaging Referral ID Status Reason Start Date Expiration Date Visits Requested Visits Authorized [id number] Authorized Auto-Generat ed Referral 05/31/2023 06/29/2024 1 1 [facility] for referral (narrative)* Diagnostic Procedure Only (Routine) - Closed Specialty Diagnoses / Procedures Referred By Contac t Referred To Contact US IMAGING Diagnoses Lower abdominal pain Weight loss, unintentional Procedures US FEMALE PELVIS TRANSVAG US TRANSVAGINAL Rell Hamilton MD [address] [place] [address] Us Imaging [facility] Referral ID Status Reason Start Date Expiration Date V isits Requested Visits Authorized [id number] Closed Auto-Generate d Referral 05/31/2023 06/29/2024 1 1 [facility] for visit Narrative* Diagnostic Procedure Only (Routine) - Closed Specialty Diagnoses / Procedures Referred By Contac t Referred To Contact US IMAGING Diagnoses Lower abdominal pain Weight loss, unintentional Procedures US ABDOMEN COMPLETE US ABDOMINAL REAL TIME W/IMAGE DOCUMENTATION Rell Hamilton MD [address] [place] [id number] Us Imaging Referral ID Status Reason Start Date Expiration Date V isits Requested Visits Authorized [id number] Closed Auto-Generate d Referral 05/31/2023 06/29/2024 1 1 [facility] Summary Purpose Family History No Family [...] in mother Procedures CONSULT TO HEMATOLOGY OFFICE/OUTPATIENT [facility] 60-74 MINUTES Guillermina Nettles APRN.[employer] SUPERVISOR [address] [place] [address] Referral ID Status Reason Start Date Expiration Date Visits Requested Visits Authorized [id number] Authorized PCP Requested Referral 2023 03/08/2024 1 1 Specialty Diagnoses / Procedures Referred By Bina t Referred To Contact CT IMAGING Diagnoses Weight loss, unintentional Lower abdominal pain Procedures CT ABD/PEL W IVCON CT ABD & PELVIS W/CONTRAST Rell Hamilton MD [address] [place] [address] Ct Imaging Referral ID Status Reason Start Date Expiration Date Visits Requested Visits Authorized [id number] Pending Review Auto-Generat ed Referral 05/25/2023 06/23/2024 2 2 Specialty Diagnoses / Procedures Referred By Bina clancy Referred To Contact Hematology Diagnoses Bleeding diathesis (HCC) Procedures CONSULT TO HEMATOLOGY OFFICE/OUTPATIENT NEW HIGH MDM 60-74 MINUTES Omid Gleason, DO [address] [place] [address] Referral ID Status Reason Start Date Expiration Date Visits Requested Visits Authorized [id number] Authorized PCP Requested Referral 05/24/2023 05/23/2024 1 1 Additional Source Comments INFORMATION SOURCE (unrecogn ized section and content) DATE CREATED AUTHOR AUTHOR'S ORGANIZ ATION 06/02/2023 [facility] DATE CREATED AUTHOR AUTHOR'S ORGANIZ ATION 12/05/2023 [facility] DATE CREATED AUTHOR AUTHOR'S ORGANIZ ATION 01/25/2024 [facility] Source Comments (unrecognize d section and content) In the event this informatio n is protected by the Federal Confidentiality of Alcohol and Drug Abuse Patient Records regulations: The Federal rules restrict any use of the information to criminally investigate or prosecute any alcohol or drug abuse patient.[facility] the event this information is protected by the Federal Confidentiality of Alcohol and Drug Abuse Patient Records regulations: The Federal rules restrict any use of the information to criminally investigate or prosecute any alcohol or drug abuse patient.[facility] the event this information is protected by the Federal Confidentiality of Alcohol and Drug Abuse Patient Records regulations: The Federal rules restrict any use of the information to criminally investigate or prosecute any alcohol or drug abuse patient.[facility] the event this information is protected by the Federal Confidentiality of Alcohol and Drug Abuse Patient Records regulations: The Federal rules restrict any use of the information to criminally investigate or prosecute any alcohol or drug abuse patient.[facility] the event this information is protected by the Federal Confidentiality of Alcohol and Drug Abuse Patient Records regulations: The Federal rules restrict any use of the information to criminally investigate or prosecute any alcohol or drug abuse patient.[facility] the event this information is protected by the Federal Confidentiality of Alcohol and Drug Abuse Patient Records regulations: The Federal rules restrict any use of the information to criminally investigate or prosecute any alcohol or drug abuse patient.[facility] the event this information is protected by the Federal Confidentiality of Alcohol and Drug Abuse Patient Records regulations: The Federal rules restrict any use of the information to criminally investigate or prosecute any alcohol or drug abuse patient.[facility] the event this information is protected by the Federal Confidentiality of Alcohol and Drug Abuse Patient Records regulations: The Federal rules restrict any use of the information to criminally investigate or prosecute any alcohol or drug abuse patient.[facility] the event this information is protected by the Federal Confidentiality of Alcohol and Drug Abuse Patient Records regulations: The Federal rules restrict any use of the information to criminally investigate or prosecute any alcohol or drug abuse patient.[facility] the event this information is protected by the Federal Confidentiality of Alcohol and Drug Abuse Patient Records regulations: The Federal rules restrict any use of the information to criminally investigate or prosecute any alcohol or drug abuse patient.[facility] the event this information is protected by the Federal Confidentiality of Alcohol and Drug Abuse Patient Records regulations: The Federal rules restrict any use of the information to criminally investigate or prosecute any alcohol or drug abuse patient.[facility] the event this information is protected by the Federal Confidentiality of Alcohol and Drug Abuse Patient Records regulations: The Federal rules restrict any use of the information to criminally investigate or prosecute any alcohol or drug abuse patient.[facility] the event this information is protected by the Federal Confidentiality of Alcohol and Drug Abuse Patient Records regulations: The Federal rules restrict any use of the information to criminally investigate or prosecute any alcohol or drug abuse patient.[facility] the event this information is protected by the Federal Confidentiality of Alcohol and Drug Abuse Patient Records regulations: The Federal rules restrict any use of the information to criminally investigate or prosecute any alcohol or drug abuse patient.[facility] the event this information is protected by the Federal Confidentiality of Alcohol and Drug Abuse Patient Records regulations: The Federal rules restrict any use of the information to criminally investigate or prosecute any alcohol or drug abuse patient.[facility] the event this information is protected by the Federal Confidentiality of Alcohol and Drug Abuse Patient Records regulations: The Federal rules restrict any use of the information to criminally investigate or prosecute any alcohol or drug abuse patient.[facility] the event this information is protected by the Federal Confidentiality of Alcohol and Drug Abuse Patient Records regulations: The Federal rules restrict any use of the information to criminally investigate or prosecute any alcohol or drug abuse patient.[facility]In the event this information is protected by the Federal Confidentiality of Alcohol and Drug Abuse Patient Records regulations: The Federal rules restrict any use of the information to criminally investigate or prosecute any alcohol or drug abuse patient.[facility]In the event this information is protected by the Federal Confidentiality of Alcohol and Drug Abuse Patient Records regulations: The Federal rules restrict any use of the information to criminally investigate or prosecute any alcohol or drug abuse patient.[facility]In the event this information is protected by the Federal Confidentiality of Alcohol and Drug Abuse Patient Records regulations: The Federal rules restrict any use of the information to criminally investigate or prosecute any alcohol or drug abuse patient.[facility]In the event this information is protected by the Federal Confidentiality of Alcohol and Drug Abuse Patient Records regulations: The Federal rules restrict any use of the information to criminally investigate or prosecute any alcohol or drug abuse patient.[facility]In the event this information is protected by the Federal Confidentiality of Alcohol and Drug Abuse Patient Records regulations: The Federal rules restrict any use of the information to criminally investigate or prosecute any alcohol or drug abuse patient.[facility]In the event this information is protected by the Federal Confidentiality of Alcohol and Drug Abuse Patient Records regulations: The Federal rules restrict any use of the information to criminally investigate or prosecute any alcohol or drug abuse patient.[facility]In the event this information is protected by the Federal Confidentiality of Alcohol and Drug Abuse Patient Records regulations: The Federal rules restrict any use of the information to criminally investigate or prosecute any alcohol or drug abuse patient.[facility] the event this information is protected by the Federal Confidentiality of Alcohol and Drug Abuse Patient Records regulations: The Federal rules restrict any use of the information to criminally investigate or prosecute any alcohol or drug abuse patient.[facility]In the event this information is protected by the Federal Confidentiality of Alcohol and Drug Abuse Patient Records regulations: The Federal rules restrict any use of the information to criminally investigate or prosecute any alcohol or drug abuse patient.[facility] the event this information is protected by the Federal Confidentiality of Alcohol and Drug Abuse Patient Records regulations: The Federal rules restrict any use of the information to criminally investigate or prosecute any alcohol or drug abuse patient.[facility] the event this information is protected by the Federal Confidentiality of Alcohol and Drug Abuse Patient Records regulations: The Federal rules restrict any use of the information to criminally investigate or prosecute any alcohol or drug abuse patient.[facility]In the event this information is protected by the Federal Confidentiality of Alcohol and Drug Abuse Patient Records regulations: The Federal rules restrict any use of the information to criminally investigate or prosecute any alcohol or drug abuse patient.[facility] the event this information is protected by the Federal Confidentiality of Alcohol and Drug Abuse Patient Records regulations: The Federal rules restrict any use of the information to criminally investigate or prosecute any alcohol or drug abuse patient.[facility]In the event this information is protected by the Federal Confidentiality of Alcohol and Drug Abuse Patient Records regulations: The Federal rules restrict any use of the information to criminally investigate or prosecute any alcohol or drug abuse patient.[facility]In the event this information is protected by the Federal Confidentiality of Alcohol and Drug Abuse Patient Records regulations: The Federal rules restrict any use of the information to criminally investigate or prosecute any alcohol or drug abuse patient.[facility]In the event this information is protected by the Federal Confidentiality of Alcohol and Drug Abuse Patient Records regulations: The Federal rules restrict any use of the information to criminally investigate or prosecute any alcohol or drug abuse patient.[facility]In the event this information is protected by the Federal Confidentiality of Alcohol and Drug Abuse Patient Records regulations: The Federal rules restrict any use of the information to criminally investigate or prosecute any alcohol or drug abuse patient.[facility]In the event this information is protected by the Federal Confidentiality of Alcohol and Drug Abuse Patient Records regulations: The Federal rules restrict any use of the information to criminally investigate or prosecute any alcohol or drug abuse patient.[facility]In the event this information is protected by the Federal Confidentiality of Alcohol and Drug Abuse Patient Records regulations: The Federal rules restrict any use of the information to criminally investigate or prosecute any alcohol or drug abuse patient.[facility]In the event this information is protected by the Federal Confidentiality of Alcohol and Drug Abuse Patient Records regulations: The Federal rules restrict any use of the information to criminally investigate or prosecute any alcohol or drug abuse patient.[facility]In the event this information is protected by the Federal Confidentiality of Alcohol and Drug Abuse Patient Records regulations: The Federal rules restrict any use of the information to criminally investigate or prosecute any alcohol or drug abuse patient.[facility] Reason for Visit (unrecogniz ed section [...] NEW HIGH MDM 60-74 MINUTES Guillermina Nettles APRN.[employer] SUPERVISOR [address] [place] [address] Referral ID Status Reason Start Date Expiration Date V isits Requested Visits Authorized [id number] Closed PCP Requested Referral 2023 03/08/2024 1 [...] TRANSVAG US TRANSVAGINAL Rell Hamilton MD [address] [place] [address] [place] [id number] Referral ID Status Reason Start Date Expiration Date V isits Requested Visits Authorized [id number] Closed Auto-Generate d Referral 05/31/2023 06/29/2024 1 1 Reason Comments Appointment Patient wanted to up date with when her appointment with is Reason Comments Referral Request Reason Onset Date Comments Refill Request 11/02/2023 Reason Comments AVS 11/30/23 Reason Onset Date Comments Refill Request 01/15/2024 Reason Onset Date Comments Depo Provera Injection 01/18/2024 Reason Comments Received Referral and Outside Medical Re cords Care Teams (unrecognized sec tion and content) Information Developer Relationship Specialty Start Date End Date Rell Hamilton MD [address] [place] [address] PCP - General Family Practice 07/04/18 Information Developer Relationship Specialty Start Date End Date Rell Hamilton MD [address] [place] [id number] PCP - General Family Practice 07/04/18 Information Developer Relationship Specialty Start Date End Date Rell Hamilton MD [address] [place] [id number] PCP - General Family Practice 07/04/18 Information Developer Relationship Specialty Start Date End Date Rell Hamilton MD [address] [place] [id number] PCP - General Family Medicine 07/04/18 Information Developer Relationship Specialty Start Date End Date Rell Hamilton MD [address] [place] [id number] PCP - General Family Medicine 07/04/18 Information Developer Relationship Specialty Start Date End Date Rell Hamilton MD [address] [place] [id number] PCP - General Family Medicine 07/04/18 Information Developer Relationship Specialty Start Date End Date Rell Hamilton MD [address] [place] [address] PCP - General Family Medicine 07/04/18 Information Developer Relationship Specialty Start Date End Date Rell Hamilton MD [address] [place] [address] PCP - General Family Medicine 07/04/18 Information Developer Relationship Specialty Start Date End Date Rell Hamilton MD [facility] [place] [address] PCP - General Family Medicine 07/04/18 Information Developer Relationship Specialty Start Date End Date Rell Hamilton MD [address] [place] [address], [place] [address] PCP - General Family Medicine 07/04/18 Information Developer Relationship Specialty Start Date End Date Rell Hamilton MD [address] [place] [address], [place] [address] PCP - General Family Medicine 07/04/18 Information Developer Relationship Specialty Start Date End Date Rell Hamilton MD [facility] [place] [address] PCP - General Family Medicine 07/04/18 Information Developer Relationship Specialty Start Date End Date Rell Hamilton MD [facility] [place] [address] PCP - General Family Medicine 07/04/18 Information Developer Relationship Specialty Start Date End Date Rell Hamilton MD [address] [place] [address] PCP - General Family Medicine 07/04/18 Information Developer Relationship Specialty Start Date End Date Rell Hamilton MD [facility] [place] [address] PCP - General Family Medicine 07/04/18 Information Developer Relationship Specialty Start Date End Date Rell Hamilton MD [address] [place] [address] PCP - General Family Medicine 07/04/18 Information Developer Relationship Specialty Start Date End Date Rell Hamilton MD [address] [place] [address] PCP - General Family Medicine 07/04/18 Information Developer Relationship Specialty Start Date End Date Rell Hamilton MD [address] [place] [address] PCP - General Family Medicine 07/04/18 Information Developer Relationship Specialty Start Date End Date Rell Hamilton MD [address] [place] [address] PCP - General Family Medicine 07/04/18 Information Developer Relationship Specialty Start Date End Date Rell Hamilton MD [address] [place] [address] PCP - General Family Medicine 07/04/18 Information Developer Relationship Specialty Start Date End Date Rell Hamilton MD [address] [place] [address] PCP - General Family Medicine 07/04/18 Information Developer Relationship Specialty Start Date End Date Rell Hamilton MD [address] [place] [address] PCP - General Family Medicine 07/04/18 Information Developer Relationship Specialty Start Date End Date Rell Hamilton MD [address] [place] [address] PCP - General Family Medicine 07/04/18 Information Developer Relationship Specialty Start Date End Date Rell Hamilton MD [address] [place] [address] PCP - General Family Medicine 07/04/18 Information Developer Relationship Specialty Start Date End Date Rell Hamilton MD [address] [place] [address] PCP - General Family Medicine 07/04/18 Information Developer Relationship Specialty Start Date End Date Frieda Boone MD [address] [place] [address] PCP - General Internal Medicine 09/11/23 Information Developer Relationship Specialty Start Date End Date Rell Hamilton MD [address] [place] [address] PCP - General Family Medicine 07/04/18 09/10/23 Information Developer Relationship Specialty Start Date End Date Rell Hamilton MD [address] [place] [address] PCP - General Family Medicine 07/04/18 09/10/23 Frieda Boone MD [address] [place] [address] PCP - General Internal Medicine 09/11/23 Information Developer Relationship Specialty Start Date End Date Frieda Boone MD [address] [place] [place] [address] PCP - General Internal Medicine 09/11/23 Information Developer Relationship Specialty Start Date End Date Frieda Boone MD [address] [place] [place] [address] PCP - General Internal Medicine 09/11/23 Information Developer Relationship Specialty Start Date End Date Frieda Boone MD [address] [place] [address] PCP - General Internal Medicine 09/11/23 Information Developer Relationship Specialty Start Date End Date Frieda Boone MD [address] [place] [address] PCP - General Internal Medicine 09/11/23 Active Administered Medications - up to 3 most recent administrations Administered Medications (un recognized section and content) FOR RECORDS PERTAINING TO PATIENTS WHO ARE [...] BE BASED ON THE PRIMARY CLINICAL RECORDS. [email or web address] provides no warranty or guarantee of the accuracy or completeness of information in this document.
[2024-02-11 01:15] LABS: ALB/GLOB Ratio 1.1 RATIO (0.9-2.4); AST(SGOT) 14 U/L (15-37); Alanine Aminotransfer ALT/SGPT 21 U/L (13-56); Albumin, Serum 4.1 g/dL (3.2-5.0); Alkaline Phosphatase 88 U/L (45-117); Anion Gap 8 (5-15); BUN 7 mg/dL (7-18); BUN/Creat Ratio 9.2 RATIO (10-20); Chloride 110 mmol/L (98-107); Creatinine, Serum 0.76 mg/dL (0.55-1.02); EST Glomerular Filtration Rate 103 mL/min (>60); Est Glom Filt Rate - Afr Amer 124 mL/min (>60); Estimated Creatinine Clearance 147.51 ml/min; Globulin 3.7 g/dL (2.2-4.2); Glucose 131 mg/dL (74-106); Potassium 3.4 mmol/L (3.5-5.1); Protein, Total 7.8 g/dL (6.4-8.2); Sodium Level 140 mmol/L (136-145); Troponin-I HS 3 pg/mL (3.0-54.0)
--- NOTE | 2024-02-11 01:20 | RAD_ITS ---
STUDY: X-RAY CHEST REASON FOR EXAM: Female, 18 years old patient with left-sided chest pain. TECHNIQUE: PA and lateral views of the chest. COMPARISON: Prior comparison studies are not available for review at this time. FINDINGS: Cardiac monitoring leads are present. The lungs are clear and expanded. There is no demonstrated pleural abnormality. Normal size heart. Normal mediastinum and jessi. Normal visualized pulmonary arteries. Normal visualized aortic arch and descending thoracic aorta. Normal visualized thoracic spine. Normal visualized ribs, clavicles, and shoulders. There is no demonstrated abnormality of the visualized soft tissue structures of the upper abdomen. RAD/Chest PA and Lateral IMPRESSION: No radiographic evidence of acute cardiopulmonary disease. Electronically Signed: Yandy Jay MD at 2:53 EDT ,
[2024-02-11 01:22] LABS: Hematocrit 41.7 % (37-47); Hemoglobin 13.5 g/dL (12.0-15.0); Mean Corp Hgb Conc 32.4 g/dL (32-36); Mean Corpuscular Hgb 29.7 pg (27.0-32.0); Mean Corpuscular Volume 91.6 fL (81-99); Mean Platelet Vol. 10.7 fl (6.2-12.0); Platelet Count 362 K/mm3 (150-450); RBC Distribution Width CV 12.6 % (11.6-14.6); RBC Distribution Width SD 42.5 fl (35.1-43.9); Red Blood Count 4.55 M/mm3 (4.2-5.4); White Blood Count 10.1 K/mm3 (4.4-11.0)
[2024-02-11 01:32] LABS: Scan Indicated on CBC? Y/N NO
[2024-02-11 01:39] VITALS: BP 120/76; PULSE 85; RESP 16; O2SAT 100
--- NOTE | 2024-02-11 02:10 | ED.VIS.CHEST ---
HPI History of Present Illness Chief Complaint: Chest Pain Detail of Chief Complaint: Left-sided chest pain with shortness of breath Informant: patient and spouse/S.O. Onset/Context/Timing Onset: Yesterday (Between 9 PM and 9:30 PM February 09) Activity at onset: sudden Timing: Intermittent and Waxes and wanes Quality: Positive for Aching Location: Left Chest Current Severity: Mild Maximum Severity: Moderate Worsened By: Nothing Relieved By: Nothing Associated Symptoms: Positive for Nausea and Dyspnea; Negative for Vomiting, Diaphoresis, Cough, Fever, Lightheadedness, Acid Reflux or Palpitations Narrative Narrative: Patient was on the commode for some time. When she got up she noted numbness in her left leg. That numbness lasted 5 minutes. Suspect due to position is sitting on the commode. She had near syncopal like symptoms. She has had a near syncopal workup. She had a equivocal table tilt test. She was referred by Dr. Baez to [facility] to a syncope specialist. She denies black or maroon-colored stool. She denies hematemesis. She denies hematochezia. Patient states she developed pain between 9 and 9:30 PM. This occurred shortly after using the commode. She states her left leg was numb after sitting on the commode. The numbness resolved after 5 minutes. She also complained of left-sided chest pain with shortness of breath. She has no history of PE or DVT. She has chronic leg pain. There is been no complaint of fever, chills night sweats. No upper respiratory symptoms. Prior Similar Symptoms: Yes, With Prior IA, With Prior Angina and With Prior PE Recent Illness/Hospitalization: No CVD Risk Factors: Negative for Hypertension, Diabetes, Hypercholesterolemia, Family History 1' </=55 or Smoking PE Risk Factors: Negative for Recent Travel/Surgery, Recent Immobilization, Prior DVT or PE, Cancer or OCP + Smoking + >/=35 TAD Risk Factors: Negative for Marfan's Syndrome, Hypertension or Family History [facility] Medical History Anemia Anxiety and depression Arthritis Bilateral lower extremity pain Chronic constipation Epistaxis Finger injury History of emotional problems Hives Hypersomnolence Migraine Seasonal allergies Vitamin C deficiency Home Medications cortisone 50 mg/mL intramuscular suspension mg IM .EVERY 3 MONTHS 06/22/23 [History Last Taken Unknown] famotidine 20 mg tablet (Pepcid) 20 mg PO BID 06/22/23 [History Last Taken Unknown] ferrous sulfate 325 mg (65 mg iron) tablet,delayed release 325 mg PO .QOD 06/22/23 [History Last Taken Unknown] potassium 99 mg tablet 99 mg PO DAILY 06/22/23 [History Last Taken Unknown] cetirizine 10 mg tablet (Zyrtec) 10 mg PO DAILY PRN allergy symptoms 11/14/23 [History Last Taken Unknown] fluticasone propionate 50 mcg/actuation nasal spray,suspension 1 spray intranasal DAILY PRN allergy symptoms 11/14/23 [History Last Taken Unknown] polyethylene glycol 3350 17 gram oral powder packet (Miralax) 17 g PO BID PRN constipation 11/14/23 [History Last Taken Unknown] ascorbic acid (vitamin C) 1,000 mg tablet 1 g PO DAILY #90 tabs 11/30/23 [Rx Last Taken Unknown] duloxetine 30 mg capsule,delayed release 30 mg PO BID 3 months #180 caps 01/04/24 [Rx Last Taken Unknown] medroxyprogesterone 150 mg/mL intramuscular syringe (Depo-Provera) 150 mg IM .q11w 01/04/24 [History Last Taken Unknown] Allergy/AdvReac Type Severity Reaction Status Date / Time oxycodone Allergy Severe Hives Verified 01/04/24 09:50 poison arden extract Allergy Severe Hives Verified 01/04/24 09:50 poison oak extract Allergy Severe Hives Verified 01/04/24 09:50 Family History Mother Anxiety Autoimmune disorder Depression Mental disorder Thyroid disorder Grandmother Anxiety Autoimmune disorder Cancer Depression Hypertension High cholesterol Grandfather History of blood transfusion Diabetes Hypertension High cholesterol Skin cancer Grandmother Breast cancer great grandma Mental disorder Surgical History H/O lateral meniscus repair of left knee History of left knee surgery History of right knee surgery History of surgical removal of lesion Social History (Updated 02/11/24 @ 02:[address] Julius Barber MD) household members: family Smoking Status: Never smoker ROS ROS ED Constitutional Constitutional ED: Denies chills, fever(s), subjective, sweats or weight loss Eyes Eyes: Reports none; Denies blurry vision, change in vision or diplopia ENT ENT ED: Denies ear pain, rhinorrhea or sore throat Cardiovascular Cardiovascular: Reports as per HPI; Denies orthopnea or paroxysmal nocturnal dyspnea Respiratory/Chest Respiratory/Chest: Reports dyspnea; Denies cough, dyspnea on exertion, orthopnea or paroxysmal nocturnal dyspnea Gastrointestinal Gastrointestinal: Denies abdominal pain, diarrhea, melena, nausea or vomiting Genitourinary Genitourinary ED: Denies dysuria, hematuria or urinary frequency Musculoskeletal Musculoskeletal: Denies back pain, myalgias or neck pain Neurologic Neurologic: Reports headache(s) and paresthesias; Denies weakness Hematologic/Lymphatic Hematologic/Lymphatic: Denies easy bleeding or easy bruising EXAM Physical Exam Const Vital Signs: 02/11/24 00:11 02/11/24 00:20 02/11/24 01:39 Temperature 98.1 F Temperature Source Oral Pulse Rate 100 85 Respiratory Rate 16 16 Respiratory Effort Normal Blood Pressure 130/109 H 120/76 Blood Pressure Mean 116 90 Pulse Ox 100 100 Oxygen Delivery Method Room Air Room Air Positive well nourished, well developed and obese General Appearance ED: well developed and NAD; Negative for pallor Nutritional Appearance: obese HEENT Reports moist mucous membranes normocephalic and atraumatic Eyes PERRL and EOMs intact bilaterally General Eye ED: Negative for pale conjunctiva or scleral icterus Neck no lymphadenopathy, supple and no JVD Neck Narrative: Trachea is midline. There is no stridor. Resp normal respiratory effort and clear to auscultation bilaterally Resp Narrative: There is no reproducible pain. Cardio regular rate, regular rhythm, S1 normal heart sound, S2 normal heart sound and no murmurs Peripheral Pulses: pulses 2+ throughout GI normal to inspection, nondistended, normoactive bowel sounds, soft to palpation, non-tender, non-distended and no masses; Negative for hepatosplenomegaly Back/Spine no CVA tenderness Extremity Extremity Narrative: There is no asymmetry, discoloration, swelling, leg vein distention, palpable cords or tenderness on the distribution deep venous system. Of note she has bilateral leg pain that is chronic per old records. General Extremety ED: Yes tenderness Neuro oriented x3, CN's II-XII intact bilaterally and no sensory deficits noted Sensorium / Orientation: awake and alert Motor Exam: strength 5/5 throughout Psych Mood & Affect: anxious Skin no rashes or lesions noted and no wounds General Skin Exam: Negative for jaundice or pallor MDM MDM MDM Narrative Medical decision making narrative: Suspect patient's left leg numbness is due to the fact she was sitting on the commode and had pressure against her sciatic nerve. This chest pain has been present before with no etiology. Her other symptoms which are pallor, lightheadedness with near syncope and chills most likely represent vasovagal especially in light of the fact that she had an equivocal table test test and was referred to syncope specialist at the [facility] by Dr. Alvarez. CBC was obtained assess H&H. BMP to assess BUN to creatinine ratio. Liver profile was obtained as well and is unremarkable. Lab Data Attestation: I reviewed the patient's lab results. Lab results narrative: White count is normal. Basic metabolic panel is normal. Troponin is less than 4. Labs: Laboratory Results - last 24 hr 02/11/24 00:38 WBC 10.1 RBC 4.55 Hgb 13.5 Hct 41.7 MCV 91.6 MCH 29.7 MCHC 32.4 RDW Std Deviation 42.5 RDW Coeff of Stephen 12.6 Plt Count 362 MPV 10.7 Sodium 140 Potassium 3.4 L Chloride 110 H Carbon Dioxide 22.0 Anion Gap 8 BUN 7 Creatinine 0.76 Estim Creat Clear Calc 147.51 Est GFR (MDRD) Af Amer 124 Est GFR (MDRD) Non-Af 103 BUN/Creatinine Ratio 9.2 L Glucose 131 H Calcium 9.0 Total Bilirubin 0.30 AST 14 L ALT 21 Alkaline Phosphatase 88 Troponin I High Sens 3 Total Protein 7.8 Albumin 4.1 Globulin 3.7 Albumin/Globulin Ratio 1.1 Radiography Chest X-Ray - ED: 2 View, Read by ED Physician (Interpreted by me at 0205.), Normal, Heart, Lungs, Mediastinum and Bony Structures Differential Diagnosis Chest pain/SOB: pulmonary embolism Reason(s) PE less likely: Positive for PERC negative, Well's <3, not tachycardic, not hypoxic and patient taking oral anticoagulants, ACS ACS: Positive for no evidence of ACS based on cardiac biomarkers, EKG without ischemia and history not suggestive of ischemia pain and aortic dissection Reason(s) Aortic dissection less likely:: Positive for normal vascular exam, no history of HTN, normal neurological exam, no significant risk factors for dissection, no widened mediastinum on CXR, pain not sudden onset, no ripping/tearing pain, no pain to back and blood pressure appropriate in ED Treatment and Re-Evaluation :: When I went to inform them of the results and apologize for delay in me returning to reexamine I was made aware that she has been complaining of a headache for the past hour. I informed her that I was unaware of this and I apologize that she did not receive anything. Discharge Plan Triage Chief Complaint: Chest Pain ED Provider: Julius Barber Dx/Rx/DC Orders Clinical Impression: Dyspnea, Headache, Vasovagal near syncope, Intermittent left-sided chest pain Prescriptions: No Action ferrous sulfate 325 mg (65 mg iron) tablet,delayed release (DR/EC) 325 mg PO .QOD famotidine [Pepcid] 20 mg tablet 20 mg PO BID potassium 99 mg tablet 99 mg PO DAILY cortisone 50 mg/mL suspension IM .EVERY 3 MONTHS Rx Instructions: BILATERAL KNEE cetirizine [Zyrtec] 10 mg tablet 10 mg PO DAILY PRN (Reason: allergy symptoms) fluticasone propionate 50 mcg/actuation spray,suspension 1 spray intranasal DAILY PRN (Reason: allergy symptoms) Rx Instructions: administer into each nostril medroxyprogesterone [Depo-Provera] 150 mg/mL syringe 150 mg IM .q11w ascorbic acid (vitamin C) 1,000 mg tablet 1 g PO DAILY Qty: 90 3RF polyethylene glycol 3350 [Miralax] 17 gram powder in packet 17 g PO BID PRN (Reason: constipation) duloxetine 30 mg capsule,delayed release(DR/EC) 30 mg PO BID 90 Days Qty: 180 0RF Primary Care Provider: Dedrick Booen Referrals: Dedrick Boone MD [Primary Care Provider] - 1 Week Disposition Disposition: Home, Self Care
[2024-02-11] MEDS: Acetaminophen 325 MG Tablet 650 MG PO (02:20)
[2024-02-11 02:49] VITALS: BP 129/77; PULSE 86; RESP 22; TEMP 36.6; O2SAT 100
== END 2024-02-11 02:56 | disposition home or self-care (01) ==
PROVIDERS: Emergency Provider Emergency Medicine; PCP Internal Medicine; Visit Provider Emergency Medicine
DX: R06.00 Dyspnea, unspecified (principal); R51.9 Headache, unspecified; R55 Syncope and collapse; R07.9 Chest pain, unspecified; E66.9 Obesity, unspecified
CPT/HCPCS: 71046; 80053; 84484; 85027; 93005; 99284

== ENCOUNTER → 2024-09-08 | Outpatient (CLI) | payer MEDICAID, SELFPAY ==
[2024-09-08 16:25] LABS: Absolute Lymphocyte Count 1.55 X10^3/uL (0.83-4.51); Absolute Neutrophil Count 4.5 X10^3/uL (2.0-7.7); Basophil# 0.05 X10^3/uL; Basophil% 0.7 % (0-1); Eosinophil# 0.06 X10^3/uL; Eosinophils% 0.9 % (0-5); Hematocrit 43.4 % (37-47); Lymphocyte # 1.55 X10^3/ul (0.83-4.51); Lymphocyte % 22.9 % (19-41); Mean Corp Hgb Conc 32.3 g/dL (32-36); Mean Corpuscular Hgb 29.2 pg (27.0-32.0); Mean Corpuscular Volume 90.6 fL (81-99); Mean Platelet Vol. 10.3 fl (6.2-12.0); Monocyte# 0.55 X10^3/uL; Monocyte% 8.1 % (0-10); NRBC Flagged by Analyzer 0.3 % (0-5); Neutrophil # 4.54 X10^3/uL (2.7-7.7); Platelet Count 374 K/mm3 (150-450); RBC Distribution Width CV 12.4 % (11.6-14.6); RBC Distribution Width SD 41.3 fl (35.1-43.9); Red Blood Count 4.79 M/mm3 (4.2-5.4); White Blood Count 6.8 K/mm3 (4.4-11.0)
[2024-09-08 16:36] LABS: AST(SGOT) 12 U/L (15-37); Alanine Aminotransfer ALT/SGPT 20 U/L (13-56); Albumin, Serum 3.9 g/dL (3.2-5.0); Alkaline Phosphatase 126 U/L (45-117); Anion Gap 5 (5-15); BUN 6 mg/dL (7-18); BUN/Creat Ratio 8.7 RATIO (10-20); Calcium,Total 9.7 mg/dL (8.5-10.1); Chloride 110 mmol/L (98-107); Creatinine, Serum 0.69 mg/dL (0.55-1.02); EST Glomerular Filtration Rate 115 mL/min (>60); Est Glom Filt Rate - Afr Amer 139 mL/min (>60); Globulin 3.8 g/dL (2.2-4.2); Glucose 97 mg/dL (74-106); Potassium 4.2 mmol/L (3.5-5.1); Protein, Total 7.7 g/dL (6.4-8.2); Sodium Level 142 mmol/L (136-145)
== END | disposition home or self-care (01) ==
LOC: BIMLAB 14:45
PROVIDERS: PCP Internal Medicine; Referring Provider Internal Medicine; Visit Provider Internal Medicine
DX: F41.9 Anxiety disorder, unspecified (principal); F32.A Depression, unspecified
CPT/HCPCS: 36415; 80053; 85025

== ENCOUNTER → 2024-11-11 | Outpatient (CLI) | payer MEDICAID, SELFPAY ==
--- NOTE | 2024-11-11 10:50 | NM_ITS ---
CLINICAL: 19-year-old female with history of chronic nausea. SEMI-SOLID PHASE 99m Tc SULFUR COLLOID GASTRIC EMPTYING STUDY COMPARISON: None available FINDINGS: The patient was administered 1.1 mCi of 99m Tc sulfur colloid mixed with oatmeal and consumed per os. Image acquisitions in the anterior-posterior projections were obtained for 60 minutes. There is prompt visualization of the stomach. There is no gastroesophageal reflux identified. The T ? linear fit was calculated to be 53.7 minutes, (Normal: 12-56 minutes). NM/Gastric Emptying Study IMPRESSION: 1. UPPER LIMITS OF NORMAL 99m Tc sulfur colloid semi-solid phase (oatmeal) gastric emptying imaging examination. A. There is normal semi-solid phase gastric emptying compared to normal controls. (Rufus et al, J Nucl Med Tech 38: 186, 2010). Electronically Signed: To De La Torre DO at 10:26 EST ,
== END | disposition home or self-care (01) ==
LOC: NM 10:47
PROVIDERS: PCP Internal Medicine; Referring Provider Student in an Organized Health Care Education/Training Program; Visit Provider Student in an Organized Health Care Education/Training Program
DX: R11.0 Nausea (principal)
CPT/HCPCS: 78264; A9541

== ENCOUNTER 2024-11-13 07:59 | Day surgery (SDC) | payer MEDICAID, SELFPAY ==
--- NOTE | 2024-11-12 11:11 | PAT.ANESEVAL ---
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 When Was Last Pacemaker Check QUESTION #4 FULL TEXT: You/Your Family Experience fever (hyperthermia) with Anesthesia Last Oral Intake Last Oral intake: Last Oral Intake NPO since Meds taken in AM with sips of water? 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 Female Yes 11/11/24 12:18 HX of Motion Sickness No 11/11/24 12:18 HX of N/V After Surgery No 11/11/24 12:18 Non-Smoker Yes 11/11/24 12:18 Duration of Surgery greater No 11/11/24 12:18 than 60 minutes Number of Risk Factors 2 11/11/24 12:18 PONV Score Moderate Risk 11/11/24 12:18 Height & Weight Height & Weight: Anesthesia: Height & Weight Height 5 ft 9 in 09/09/24 16:02 Respiratory Assessment Respiratory Assessment - catalyst plant supervisor: Respiratory Tract Infection Hx - catalyst plant supervisor Hx Respiratory Tract Infection No 11/11/24 12:18 STOP Sleep Apnea STOP Sleep Apnea - catalyst plant supervisor: STOP Sleep Apnea - catalyst plant supervisor Hx Hypertension No 11/11/24 12:18 Hx Sleep Apnea No 11/11/24 12:18 CPAP BIPAP Do you snore loudly (louder No 11/11/24 12:18 than talking or can be heard Do you often feel tired/ No 11/11/24 12:18 fatigued/ sleepy during daytime? Has anyone observed you stop No 11/11/24 12:18 breathing during sleep? STOP Results Negative 11/11/24 12:18 QUESTION #5 FULL TEXT : Do you snore loudly (louder than talking or can be heard through closed doors)? 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 Specify any problems Hx of Preganancy in last 3 No 11/11/24 12:18 Months Nurse Filling Out Transfusion VCHRISTIN 11/11/24 12:18 & Questions: Date: 11/11/24 11/11/24 12:18 Time: 12:19 11/11/24 12:18 Patient unable to answer at this time (ie. confused, unrespo /Reproduction History /Reproductive History - catalyst plant supervisor: /Reproductive Hx- catalyst plant supervisor Hx Now No 11/11/24 12:18 Gestational Age (in weeks): EDC: Hx Hx Para Hx Section SAB No 11/11/24 12:18 PFSH Medical History (Updated 11/11/24 @ 12:18 by Мария Eckert) Wears contact lenses Wears glasses Depression Anxiety Easy bruising Excessive bleeding Back pain Difficulty swallowing Difficulty chewing Gastric reflux Non-smoker Leg cramps History of pain when walking History of edema Cardiology follow-up encounter GERD (gastroesophageal reflux disease) Fibromyalgia Gastroenteritis Finger injury Bilateral lower extremity pain Migraine Anxiety and depression Epistaxis Hypersomnolence Chronic constipation Vitamin C deficiency Hives History of emotional problems Arthritis Anemia Seasonal allergies Home Medications ?Medication ?Instructions ?Recorded ?Last Taken ?Type fluticasone propionate 50 1 spray intranasal DAILY PRN 11/14/23 Unknown History mcg/actuation nasal allergy symptoms spray,suspension polyethylene glycol 3350 17 gram 17 g PO BID PRN constipation 11/14/23 Unknown History oral powder packet (Miralax) medroxyprogesterone 150 mg/mL 150 mg IM .q11w 01/04/24 Unknown History intramuscular syringe (Depo-Provera) cetirizine 10 mg tablet (Zyrtec) 10 mg PO DAILY PRN allergy 06/09/24 Unknown Rx symptoms #90 tabs duloxetine 60 mg capsule,delayed 60 mg PO BID 06/09/24 Unknown History release ascorbic acid (vitamin C) 1,000 mg 1 g PO DAILY #90 tabs 07/04/24 Unknown Rx tablet ferrous sulfate 325 mg (65 mg 325 mg PO .QOD #90 tabs 07/04/24 Unknown Rx iron) tablet,delayed release magnesium oxide 400 mg (241.3 mg 400 mg PO QDAY 09/08/24 Unknown History magnesium) tablet plecanatide 3 mg tablet (Trulance) 3 mg PO QDAY #30 tabs 10/31/24 Unknown Rx Allergy/AdvReac Type Severity Reaction Status Date / Time oxycodone Allergy Severe Hives Verified 11/11/24 12:09 poison arden extract Allergy Severe Hives Verified 11/11/24 12:09 poison oak extract Allergy Severe Hives Verified 11/11/24 12:09 Family History Mother Anxiety Autoimmune disorder Depression Mental disorder Thyroid disorder Grandmother Anxiety Autoimmune disorder Cancer Depression Hypertension High cholesterol Grandfather History of blood transfusion Diabetes Hypertension High cholesterol Skin cancer Grandmother Breast cancer great grandma Mental disorder Surgical History History of left knee surgery History of right knee surgery History of surgical removal of lesion H/O lateral meniscus repair of left knee Social History household members: family Smoking Status: Never smoker alcohol intake: never substance use type: does not use additional social history: no vaping, no edibles, no asa or ibuprofen Audit: Pertinent Findings Pertinent Findings EKG Perinent findings: 2023 sinus rhythm 87 bpm PACs Echo (EF%) pertinent findings: EF normal 03/28/2024 Consult pertinent findings: Cardiology visit 11/14/2023 tilt test for syncope also recommend echocardiogram Additional pertinent findings: Tilt test 11/14/2024 essentially negative Recommendation Anesthesia Recommendation Anesthesia recommendation: OPTIMIZED for anesthesia
[2024-11-13] VITALS (7 sets, daily range): BP systolic 108–136; BP diastolic 58–73; PULSE 81–105; RESP 16; TEMP 36.4–36.6; O2SAT 96–99; BMI 31.6
--- NOTE | 2024-11-13 | IMM_PTH ---
PATIENT: NANCY CEDILLO LOC: EN U#:[id number] AGE/SX: 19/F ROOM: RE11/13/[address]: Dr. Jareth Mckeon DO : 2005 BED: DIS: 11/13/2024 SPEC #: [id number] RECD: 11/14/24 11:27 STATUS: ESTRELLA REQ #: [id number] MARTHA: 11/13/24 00:[address]: Jareth Mckeon DEPT: IMMUNOHISTOCHEMISTRY RECD BY: Joseluis Mcneal ENTERED: 11/14/24 11:27 SP TYPE: IMMUNO OT DR: Dr. Dedrick Boone MD Tissues: B - Pyloric sphincter Procedures: H Pylori (initial) PHYSICIAN & INSTITUTION [place] [id number] SPECIMEN INFORMATION: Tissue Source: B- Pyloric sphincter biopsy Clinical Info: Constipation, GERD Specimen Number: [id number] CPT code: 22622 METHODOLOGY: Deparaffinized sections of prefer/formalin-fixed tissue or PAP/DQ stained slides are incubated with monoclonal/polyclonal antibodies/oligonucleotide probes. Localization is made via biotin free immunoperoxidase method. Appropriate controls are performed and reacted as expected. Results on target cell population are indicated in the following table: RESULTS: ANTIBODY / CLONE RESULT Block B H Pylori (polyclonal) negative These tests were developed and their performance characteristics determined by [facility]. They may not have been cleared or approved by the U.S. Food and Drug Administration. The FDA has determined that such clearance or approval is not necessary. The above immunohistochemical/dualISH markers are ordered and reviewed by the Pathologist. INTERPRETATION: B. Pyloric sphincter, biopsy: Negative for Helicobacter pylori organisms. SJ:rush 11/17/2024
[2024-11-13 08:46] LABS: Internal QC Validated? YES +Cl - CLEAR BKGD; Pregnancy, Serum, hCG Quali. NEGATIVE Negative
--- NOTE | 2024-11-13 09:00 | EGD_PTH ---
PATIENT: NANCY CEDILLO LOC: EN U#:[id number] AGE/SX: 19/F ROOM: RE11/13/[address]: Dr. Jareth Mckeon DO : 2005 BED: DIS: 11/13/2024 SPEC #: [id number] RECD: 11/13/24 12:23 STATUS: ESTRELLA CHELSEA #: [id number] MARTHA: 11/13/24 09:[address]: Jareth Mckeon DEPT: SURGICAL PATHOLOGY RECD BY: Favian Hager ENTERED: 11/13/24 12:51 SP TYPE: EGD BIOPSY CHASE DR: Dr. Dedrick Boone MD Tissues: A - Duodenum, NOS B - Pyloric sphincter Procedures: Surgery Specimen Level IV HEADER OPERATION: EGD biopsy PRE-OP DIAGNOSIS: Constipation, GERD TISSUE SUBMITTED: A- Duodenum biopsy, B- Pyloric sphincter biopsy MICROSCOPIC DIAGNOSIS A. Duodenum, biopsy: Fragments of duodenal mucosa, no pathologic diagnosis. B. Pyloric sphincter, biopsy: Mild gastritis. See microscopic description and comment. 11/14/2024 COMMENT B. The results of immunohistochemistry for Helicobacter pylori will be reported separately ([id number]). MICROSCOPIC DESCRIPTION Slides are reviewed. B. The specimen shows fragments of gastric mucosa with chronic inflammatory cell infiltrates in the lamina propria consisting of lymphocytes and plasma cells, consistent with mild chronic gastritis. GROSS DESCRIPTION A. Received in fixative is one container labeled with the patient's name and designated Duodenum biopsy. The specimen consists of multiple irregular fragments of light gamino soft tissue that in aggregate measure 0.2 x 0.4 x 1.0 cm. The specimen is totally submitted in one cassette. B. Received in fixative is one container labeled with the patient's name and designated Pyloric sphincter biopsy. The specimen consists of multiple irregular fragments of light gamino soft tissue that in aggregate measure 0.2 x 0.1 x 1.25 cm. The specimen is totally submitted in one cassette. 11/13/2024 TC:3 CPT:66383k6
--- NOTE | 2024-11-13 09:15 | PCM.PRE.AN2 ---
ASA Classification* ASA Classification ASA Classification: 2 Assessment & Plan Anesthesia* Anesthesia Assessment Anesthesia Assessment: Discussed sedation and/or anesthesia options, risks, benefits, and alternatives with patient/parents/legal guardian/POA. Questions invited. The patient/parents/legal guardian/POA seems to understand and agrees to proceed with anesthesia plan. Reviewed the physical assessment, medical history, allergy history and patient home medications list prior to surgery/procedure/anesthetic and documented any changes. Performed airway and anesthesia risk assessments. Anesthesia Type Anesthesia Type: MAC History Source History Obtained from:: Patient and Chart Anesthesia Focused Assessment* Temperature: 97.7 F Pulse Rate: 85 Blood Pressure: 108/73 Respiratory Rate: 16 Pulse Ox: 99 Oxygen Delivery Method: Room Air Airway Assessment Mouth opens: >3 cm Mallampati Score: IV Teeth Condition: Intact Neck Range of motion (ROM): Full ROM Focused Labs Anesthesia Preop lab: CBC WBC 6.8 K/mm3 (4.4-11.0) 09/08/24 14:46 RBC 4.79 M/mm3 (4.2-5.4) 09/08/24 14:46 Hgb 14.0 g/dL (12.0-15.0) 09/08/24 14:46 Hct 43.4 % (37-47) 09/08/24 14:46 Plt Count 374 K/mm3 (150-450) 09/08/24 14:46 CHEMISTRY Potassium 4.2 mmol/L (3.5-5.1) 09/08/24 14:46 Sodium 142 mmol/L (136-145) 09/08/24 14:46 BUN 6 mg/dL (7-18) L 09/08/24 14:46 Creatinine 0.69 mg/dL (0.55-1.02) 09/08/24 14:46 Glucose 97 mg/dL (74-106) 09/08/24 14:46 COAG Pre-Assessment Diagnosis/Proposed Procedure Planned Operative Procedure(s): EGD Anesthesia History 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 When Was Last Pacemaker Check QUESTION #4 FULL TEXT: You/Your Family Experience fever (hyperthermia) with Anesthesia Last Oral Intake Last Oral intake: Last Oral Intake NPO since 00:00 11/13/24 08:25 Meds taken in AM with sips of water? Meds patient instructed to take am of surgery PONV PONV - farm product purchaser: PONV - farm product purchaser Female Yes 11/11/24 12:18 HX of Motion Sickness No 11/11/24 12:18 HX of N/V After Surgery No 11/11/24 12:18 Non-Smoker Yes 11/11/24 12:18 Duration of Surgery greater No 11/11/24 12:18 than 60 minutes Number of Risk Factors 2 11/11/24 12:18 PONV Score Moderate Risk 11/11/24 12:18 Height & Weight Height & Weight: Anesthesia: Height & Weight Height 5 ft 9 in 11/13/24 08:25 Weight: 97.069 kg 11/13/24 08:25 Body Mass Index (BMI) 31.6 11/13/24 08:25 Respiratory Assessment Respiratory Assessment - farm product purchaser: Respiratory Tract Infection Hx - farm product purchaser Hx Respiratory Tract Infection No 11/11/24 12:18 STOP Sleep Apnea STOP Sleep Apnea - farm product purchaser: STOP Sleep Apnea - farm product purchaser Hx Hypertension No 11/11/24 12:18 Hx Sleep Apnea No 11/11/24 12:18 CPAP BIPAP Do you snore loudly (louder No 11/11/24 12:18 than talking or can be heard Do you often feel tired/ No 11/11/24 12:18 fatigued/ sleepy during daytime? Has anyone observed you stop No 11/11/24 12:18 breathing during sleep? STOP Results Negative 11/11/24 12:18 QUESTION #5 FULL TEXT : Do you snore loudly (louder than talking or can be heard through closed doors)? Tobacco Use History Tobacco Use History - farm product purchaser: Tobacco Use History - farm product purchaser Tobacco Use Smoking Status Never smoker 11/11/24 12:18 Hx Tobacco Use No 11/11/24 12:18 Years Smoking Packs Smoked per Day Smoking Cessation Date was within the last 15 years Hx Smoking Cessation Date Hx Smoking Cessation Counseling Hematologic Medial History Hematologic Hx - farm product purchaser: Hematologic Medical Hx - family resource specialist Hx of Blood Transfusion No 11/11/24 12:18 Hx of Transfusion in last 3 No 11/11/24 12:18 Months Date of Last Transfusion (if within last 3 months) Ever experience any problems No 11/11/24 12:18 with transfusion(s)? Specify any problems Hx of Preganancy in last 3 No 11/11/24 12:18 Months Nurse Filling Out Transfusion VCHRISTIN 11/11/24 12:18 & Questions: Date: 11/11/24 11/11/24 12:18 Time: 12:19 11/11/24 12:18 Patient unable to answer at this time (ie. confused, unrespo /Reproduction History /Reproductive History - farm product purchaser: /Reproductive Hx- farm product purchaser Hx Now No 11/11/24 12:18 Gestational Age (in weeks): EDC: Hx Hx Para Hx Section SAB No 11/11/24 12:18 PFSH Medical History Wears contact lenses Wears glasses Depression Anxiety Easy bruising Excessive bleeding Back pain Difficulty swallowing Difficulty chewing Gastric reflux Non-smoker Leg cramps History of pain when walking History of edema Cardiology follow-up encounter GERD (gastroesophageal reflux disease) Fibromyalgia Gastroenteritis Finger injury Bilateral lower extremity pain Migraine Anxiety and depression Epistaxis Hypersomnolence Chronic constipation Vitamin C deficiency Hives History of emotional problems Arthritis Anemia Seasonal allergies Home Medications ?Medication ?Instructions ?Recorded ?Last Taken ?Type fluticasone propionate 50 1 spray intranasal DAILY PRN 11/14/23 Unknown History mcg/actuation nasal allergy symptoms spray,suspension polyethylene glycol 3350 17 gram 17 g PO BID PRN constipation 11/14/23 Unknown History oral powder packet (Miralax) medroxyprogesterone 150 mg/mL 150 mg IM .q11w 01/04/24 Unknown History intramuscular syringe (Depo-Provera) cetirizine 10 mg tablet (Zyrtec) 10 mg PO DAILY PRN allergy 06/09/24 Unknown Rx symptoms #90 tabs duloxetine 60 mg capsule,delayed 60 mg PO BID 06/09/24 Unknown History release ascorbic acid (vitamin C) 1,000 mg 1 g PO DAILY #90 tabs 07/04/24 Unknown Rx tablet ferrous sulfate 325 mg (65 mg 325 mg PO .QOD #90 tabs 07/04/24 Unknown Rx iron) tablet,delayed release magnesium oxide 400 mg (241.3 mg 400 mg PO QDAY 09/08/24 Unknown History magnesium) tablet plecanatide 3 mg tablet (Trulance) 3 mg PO QDAY #30 tabs 10/31/24 Unknown Rx Allergy/AdvReac Type Severity Reaction Status Date / Time oxycodone Allergy Severe Hives Verified 11/13/24 08:22 poison arden extract Allergy Severe Hives Verified 11/13/24 08:22 poison oak extract Allergy Severe Hives Verified 11/13/24 08:22 Family History Mother Anxiety Autoimmune disorder Depression Mental disorder Thyroid disorder Grandmother Anxiety Autoimmune disorder Cancer Depression Hypertension High cholesterol Grandfather History of blood transfusion Diabetes Hypertension High cholesterol Skin cancer Grandmother Breast cancer great grandma Mental disorder Surgical History History of left knee surgery History of right knee surgery History of surgical removal of lesion H/O lateral meniscus repair of left knee Social History household members: family Smoking Status: Never smoker alcohol intake: never substance use type: does not use additional social history: no vaping, no edibles, no asa or ibuprofen Review of Systems (Anesthesia) ROS Narrative System reviewed and no additional complaints, except as documented.
--- NOTE | 2024-11-13 09:38 | PCM.HP.STD ---
HPI - General General Date of Admission: 11/13/24 Date of Service: 11/13/24 Chief Complaint: abdominal pain HPI Narrative NANCY CEDILLO, is a 19 F who presents to the office today for establishment with [facility]. Pt has been having severe heartburn, nocturnal nausea and constipation every since being on tramadol after knee surgeries a few years ago. She has tried a month long course of omeprazole 40 mg which did not help. She now takes Pepcid daily but this only helps with the burning not the nausea. She tells me she is a very slow eater and will get full quickly. As soon as she eats she feels bloating. She has never had an EGD. She also has constipation typically with one bowel movement per week. She has gone as long as 14 days without a bowel movement. She does have some abdominal pain and back pain with her constipation. She has tried numerous OTC medications like miralax, stool softeners and magnesium which did not help. [facility] Medical History Wears contact lenses Wears glasses Depression Anxiety Easy bruising Excessive bleeding Back pain Difficulty swallowing Difficulty chewing Gastric reflux Non-smoker Leg cramps History of pain when walking History of edema Cardiology follow-up encounter GERD (gastroesophageal reflux disease) Fibromyalgia Gastroenteritis Finger injury Bilateral lower extremity pain Migraine Anxiety and depression Epistaxis Hypersomnolence Chronic constipation Vitamin C deficiency Hives History of emotional problems Arthritis Anemia Seasonal allergies Home Medications ?Medication ?Instructions ?Recorded ?Last Taken ?Type fluticasone propionate 50 1 spray intranasal DAILY PRN 11/14/23 Unknown History mcg/actuation nasal allergy symptoms spray,suspension polyethylene glycol 3350 17 gram 17 g PO BID PRN constipation 11/14/23 Unknown History oral powder packet (Miralax) medroxyprogesterone 150 mg/mL 150 mg IM .q11w 01/04/24 Unknown History intramuscular syringe (Depo-Provera) cetirizine 10 mg tablet (Zyrtec) 10 mg PO DAILY PRN allergy 06/09/24 Unknown Rx symptoms #90 tabs duloxetine 60 mg capsule,delayed 60 mg PO BID 06/09/24 Unknown History release ascorbic acid (vitamin C) 1,000 mg 1 g PO DAILY #90 tabs 07/04/24 Unknown Rx tablet ferrous sulfate 325 mg (65 mg 325 mg PO .QOD #90 tabs 07/04/24 Unknown Rx iron) tablet,delayed release magnesium oxide 400 mg (241.3 mg 400 mg PO QDAY 09/08/24 Unknown History magnesium) tablet plecanatide 3 mg tablet (Trulance) 3 mg PO QDAY #30 tabs 10/31/24 Unknown Rx Allergy/AdvReac Type Severity Reaction Status Date / Time oxycodone Allergy Severe Hives Verified 11/13/24 08:22 poison arden extract Allergy Severe Hives Verified 11/13/24 08:22 poison oak extract Allergy Severe Hives Verified 11/13/24 08:22 Family History Mother Anxiety Autoimmune disorder Depression Mental disorder Thyroid disorder Grandmother Anxiety Autoimmune disorder Cancer Depression Hypertension High cholesterol Grandfather History of blood transfusion Diabetes Hypertension High cholesterol Skin cancer Grandmother Breast cancer great grandma Mental disorder Surgical History History of left knee surgery History of right knee surgery History of surgical removal of lesion H/O lateral meniscus repair of left knee Social History household members: family Smoking Status: Never smoker alcohol intake: never substance use type: does not use additional social history: no vaping, no edibles, no asa or ibuprofen ROS Constitutional Constitutional: Denies fatigue, fever(s), poor appetite, weight gain or weight loss Gastrointestinal Gastrointestinal: Denies belching, bloating, change in bowel habits, change in stool character, chewing difficulty, coffee ground emesis, constipation, cramping, diarrhea, dyspepsia, dysphagia, early satiety, excessive flatus, fecal incontinence, heartburn, hematemesis, hematochezia, hemorrhoids, loose stools, melena, nausea, odynophagia, rectal bleeding, tenesmus, vomiting or weight changes Vital Signs Vital Signs Vital Signs: 11/13/24 08:25 11/13/24 08:25 11/13/24 09:27 Temperature 97.7 F L 97.7 F L Temperature Source Temporal Pulse Rate 85 85 Respiratory Rate 16 16 Respiratory Pattern Normal Blood Pressure 108/73 108/73 Blood Pressure Mean 84 Blood Pressure Source Monitor Blood Pressure Position Semi-Fowlers Blood Pressure Location Left Arm Pulse Ox 99 99 Oxygen Delivery Method Room Air Room Air Weight Weight: 214 lb Body Mass Index (BMI) 31.6 Physical Exam Const alert, oriented x3, no apparent distress and healthy appearing General Appearance: cooperative GI normal to inspection, nondistended, normoactive bowel sounds, soft to palpation, non-tender and non-distended Percussion: normal to percussion Rectal Exam: deferred Results Lab / Micro Data Labs: Laboratory Results - last 24 hr 11/13/24 08:30: Serum , Qual NEGATIVE Assessment & Plan Assessment/Plan (1) Constipation: (2) GERD (gastroesophageal reflux disease): PLAN: Plan (1) GERD (gastroesophageal reflux disease): Status: Acute Plan: Pt is a 19 yo female with constipation, GERD and nausea here today for evaluation. These symptoms all started shortly after having knee surgeries and being on Tramadol. She has daily heartburn which was not relieved with a course of omeprazole 40 mg. SHe has tried Pepcid with some relief. She has never had an EGD so she will be scheduled for one to rule out GERD, gastritis or esophagitis. My differential also includes gastroparesis as she gets full and bloated quickly. I will order GES to rule this out. She also has complaints of constipation with a bm once a week. SHe has gone 14 days in the past without going. She tried all the OTC medications. I gave her stamples of Linzess in the office today and I will send in a prescription for this.
--- NOTE | 2024-11-13 10:05 | OP.CCLET_ITS ---
11/13/2024 Dedrick Boone MD [address] [place] [address] [place] [address] Re : Upper GI endoscopy procedure for Lu Timmons Dear Dr. Boone This procedure was performed on October. My impressions and recommendations are as follows: Impressions : - Normal esophagus. - Erythematous mucosa in the gastric body and prepyloric region of the stomach. Biopsied. - Duodenal erosion without bleeding. Biopsied. Recommendations : - Discharge patient to home. - Resume previous diet. - Continue present medications. - Await pathology results. My findings are described in the full procedure note, which is enclosed. If I can be of further assistance, please feel free to contact me at . Sincerely, Jareth Mckeon, 11/13/2024 10:04:34 AM This report has been signed electronically.
--- NOTE | 2024-11-13 10:05 | OP.EGD_ITS ---
Patient Name: Lu Timmons Procedure Date: 11/13/2024 9:38 AM Date of : 2005 Age: 19 Procedure: Upper GI endoscopy Indications: Epigastric abdominal pain Providers: Jareth Mckeon DO Referring MD: Dedrick Boone MD Medicines: Monitored Anesthesia Care Patient Profile: Refer to note in patient chart for documentation of history and physical. Patient has symptoms of acute epigastric abdominal pain. Complications: No immediate complications. Procedure: Pre-Anesthesia Assessment: - Prior to the procedure, a History and Physical was performed, and patient medications and allergies were reviewed. The patient is competent. The risks and benefits of the procedure and the sedation options and risks were discussed with the patient. All questions were answered and informed consent was obtained. Patient identification and proposed procedure were verified by the physician in the pre-procedure area. Mental Status Examination: alert and oriented. Airway Examination: normal oropharyngeal airway and neck mobility. Respiratory Examination: clear to auscultation. CV Examination: normal. Prophylactic Antibiotics: The patient does not require prophylactic antibiotics. Prior Anticoagulants: The patient has taken no anticoagulant or antiplatelet agents. ASA Grade Assessment: II - A patient with mild systemic disease. After reviewing the risks and benefits, the patient was deemed in satisfactory condition to undergo the procedure. The anesthesia plan was to use monitored anesthesia care (MAC). Immediately prior to administration of medications, the patient was re-assessed for adequacy to receive sedatives. The heart rate, respiratory rate, oxygen saturations, blood pressure, adequacy of pulmonary ventilation, and response to care were monitored throughout the procedure. The physical status of the patient was re-assessed after the procedure. After obtaining informed consent, the endoscope was passed under direct vision. Throughout the procedure, the patient's blood pressure, pulse, and oxygen saturations were monitored continuously. The gastroscope was introduced through the mouth, and advanced to the second part of duodenum. The upper GI endoscopy was accomplished without difficulty. The patient tolerated the procedure well. Scope In: 9:51:03 AM Scope Out: 9:55:19 AM Total Procedure Duration Time 0 hours 4 minutes 16 seconds Findings: The examined esophagus was normal. Patchy mildly erythematous mucosa without bleeding was found in the gastric body and in the prepyloric region of the stomach. Biopsies were taken with a cold forceps for histology. Verification of patient identification for the specimen was done. Estimated blood loss was minimal. Biopsies were taken with a cold forceps for Helicobacter pylori testing. Verification of patient identification for the specimen was done. Estimated blood loss was minimal. A single localized erosion without bleeding was found in the second portion of the duodenum. Biopsies were taken with a cold forceps for histology. Verification of patient identification for the specimen was done. Estimated blood loss was minimal. Impression: - Normal esophagus. - Erythematous mucosa in the gastric body and prepyloric region of the stomach. Biopsied. - Duodenal erosion without bleeding. Biopsied. Recommendation: - Discharge patient to home. - Resume previous diet. - Continue present medications. - Await pathology results. Procedure Code(s): --- Professional --- 23902, Esophagogastroduodenoscopy, flexible, transoral; with biopsy, single or multiple CPT copyright 2021 [employer]. All rights reserved. The codes documented in this report are preliminary and upon lawn sprinkler installer review may be revised to meet current compliance requirements. Jareth Mckeon DO 11/13/2024 10:04:34 AM This report has been signed electronically. Number of Addenda: 0 Note Initiated On: 11/13/2024 9:38 AM
--- NOTE | 2024-11-13 10:05 | PCM.POST.ANE ---
Anesthesia: Postop Eval I Current Vital Signs Temperature: 97.6 F Pulse Rate: 84 Blood Pressure: 129/70 Respiratory Rate: 16 Pulse Ox: 98 Oxygen Delivery Method: Room Air Assessment Airway patent: Yes Spontaneous unlabored respirations: Yes Mental status: Asleep nausea: No Vomiting: No Anesthesia Complication: No Fluid Hydration Crystalloid volume administer (ml): 30 Total IV fluid infused: 30 Progress Note Anesthesia document: Postop Eval 1 completed: Yes
--- NOTE | 2024-11-14 07:33 | PCM.POSTANE2 ---
Anesthesia Postop Eval I Sum Postop Eval Completion status Anesthesia document: Postop Eval 1 completed: Yes Anesthesia Postop Eval I Summary Anesthesia Postop Eval I Summary: Anesthesia Postop Eval I: Assessment Summary Airway patent Yes 11/13/24 10:06 [email or web address] Spontaneous unlabored Yes 11/13/24 10:06 [email or web address] respirations Mental status Asleep 11/13/24 10:06 [email or web address] nausea No 11/13/24 10:06 [email or web address] Vomiting No 11/13/24 10:06 [email or web address] Anesthesia Postop Eval I: Fluid Summary Crystalloid volume administer 30 11/13/24 10:06 [email or web address] (ml) Colloids volume administered ( ml) Blood Product volume administered (ml) Total IV fluid infused 30 11/13/24 10:06 [email or web address] Anesthesia Postop Eval I: Summary Notes Anesthesia Complication No 11/13/24 10:06 [email or web address] Anesthesia Complication Comment: Post-operative progress note Anesthesia: Postop Eval II Evaluation Mental status: Awake Pain Level: 0 nausea: No Vomiting: No
== END 2024-11-13 10:35 | disposition home or self-care (01) ==
LOC: EN 07:59 → AC 08:07
PROVIDERS: Anesthesiology; PCP Internal Medicine; Referring Provider Internal Medicine; Visit Provider Internal Medicine Gastroenterology
PROC: 0DJ08ZZ Inspection of Upper Intestinal Tract, Via Natural or Artificial Opening Endoscopic (ICD-10-PCS; CPT 43235; principal; 2024-11-13 08:55)
DX: K29.70 Gastritis, unspecified, without bleeding (principal); K59.00 Constipation, unspecified; M79.7 Fibromyalgia; K21.9 Gastro-esophageal reflux disease without esophagitis; Z79.899 Other long term (current) drug therapy
CPT/HCPCS: 43239; 84703; 88305; 88342; A4216; J2405

== ENCOUNTER → 2024-11-28 | Outpatient (CLI) | payer MEDICAID, SELFPAY ==
[2024-11-28 09:53] LABS: Erythrocyte Sedimentation Rate 4 mm/hr (0-30); Platelet Count 354 K/mm3 (150-450); RET-HE 33.8 pg (30-35)
[2024-11-28 10:13] LABS: CRP 3.54 mg/L (0.0-3.0); Ferritin 110 ng/mL (8-252); Iron 80 ug/dL (50-170); Iron Binding Capacity,Total 335 ug/dL (250-450); LDH 217 U/L (84-246); PERCENT IRON SATURATION 23.9 % (15.0-55.0)
[2024-12-02 16:08] LABS: Albumin 3.8 g/dL (2.9-4.4); Alpha-1-Globulins 0.2 g/dL (0.0-0.4); Alpha-2-Globulins 0.9 g/dL (0.4-1.0); Gamma Globulin 0.9 g/dL (0.4-1.8); Haptoglobin 225 mg/dL (33-278); Immunoglobulin A 111 mg/dL (87-352); Immunoglobulin G 1047 mg/dL (586-1602); Immunoglobulin M 77 mg/dL (26-217); Transferrin 268 mg/dL (192-364)
== END | disposition home or self-care (01) ==
LOC: LAB 09:05
PROVIDERS: PCP Internal Medicine; Referring Provider Internal Medicine Gastroenterology; Visit Provider Internal Medicine Gastroenterology
DX: D64.9 Anemia, unspecified (principal); R11.0 Nausea
CPT/HCPCS: 36415; 82728; 82784; 83010; 83540; 83550; 83615; 84165; 84466; 85045; 85652; 86140; 86334

== ENCOUNTER → 2025-01-13 | Outpatient (CLI) | payer MEDICAID, SELFPAY ==
--- NOTE | 2025-01-13 08:32 | NM_ITS ---
PROCEDURE: HEPATOBILIARY IMAGING WITH PHARMACOLOGICAL INTERVENTION REASON FOR EXAM: NAUSEA. BILIARY REFLUX. ABDOMINAL PAIN. TECHNIQUE: Intravenous Choletec with planar imaging of the abdomen. 1.9 mcg Kinevac intravenously approximately minutes after the radiopharmaceutical with additional anterior imaging and a region of interest drawn around the gallbladder to calculate a time-activity curve. RADIOPHARMACEUTICAL: 5.8 mCi of 99 M Technetium Mebrofenin. COMPARISON: None. FINDINGS: There is good uptake of the radiopharmaceutical by the liver. Normal gallbladder visualization with the gallbladder identified by 15 minutes. Prompt appearance of activity in the small bowel at approximately 30 minutes. Gallbladder Ejection Fraction: 15 % (Normal is >35%) NM/Hepatobilliary Img w/Pharm Int IMPRESSION: 1. Normal gallbladder. 2. Abnormal gallbladder ejection fraction at 15%. Reading Location: [facility]
--- NOTE | 2025-01-13 08:32 | US_ITS ---
PROCEDURE: ABDOMEN LIMITED REASON FOR EXAM: 19-year-old female, bile reflux and nausea. COMPARISON: Nuclear medicine HIDA scan 01/13/2025. FINDINGS: Liver: Normal in size with diffuse hyperechoic parenchyma. Gallbladder: No stones, sludge, wall thickening or tenderness. Common bile duct: Normal measuring 3 mm. Pancreas: Visualized portions are sonographically unremarkable. Kidneys: The right kidney measures 11.2 x 5.2 x 4.4 cm. Renal parenchymal thicknesses and echotextures are preserved. No hydronephrosis. Aorta: Visualized abdominal aorta is of normal size. IVC: Visualized inferior vena cava is unremarkable. Peritoneal Findings: No ascites identified. US/Abdomen Limited IMPRESSION: Hyperechoic liver parenchyma, compatible with fibrosis/steatosis. Reading Location: [id number]
== END | disposition home or self-care (01) ==
LOC: NM 08:26
PROVIDERS: PCP Internal Medicine; Referring Provider Internal Medicine Gastroenterology; Visit Provider Internal Medicine Gastroenterology
DX: K29.60 Other gastritis without bleeding (principal); R11.0 Nausea
CPT/HCPCS: 76705; 78227; A9537; J2805

== ENCOUNTER → 2025-10-09 | Outpatient (CLI) | payer OTHER, SELFPAY ==
[2025-10-09 09:53] LABS: Hematocrit 42.5 % (37-47); Hemoglobin 14.1 g/dL (12.0-15.0); Immature Granulocytes Count 0.040 X10^3/uL (0.0-0.0); Mean Corp Hgb Conc 33.2 g/dL (32-36); Mean Corpuscular Volume 90.2 fL (81-99); Mean Platelet Vol. 9.5 fl (6.2-12.0); NRBC Flagged by Analyzer 0 % (0-5); Platelet Count 334 K/mm3 (150-450); RBC Distribution Width CV 12.6 % (11.6-14.6); RBC Distribution Width SD 41.9 fl (35.1-43.9); Red Blood Count 4.71 M/mm3 (4.2-5.4); White Blood Count 8.0 K/mm3 (4.4-11.0)
[2025-10-09 10:31] LABS: AST(SGOT) 21 U/L (<=31); Alanine Aminotransfer ALT/SGPT 17 U/L (<=34); Albumin, Serum 4.5 g/dL (3.5-5.0); Alkaline Phosphatase 128 U/L (35-104); Anion Gap 10 (5-15); BUN 11 mg/dL (4-19); BUN/Creat Ratio 14.2 RATIO (10-20); Calcium,Total 9.5 mg/dL (7.6-11.0); Carbon Dioxide 22.9 mmol/L (21.0-32.0); Chloride 106 mmol/L (98-108); Globulin 3.2 g/dL (2.2-4.2); Glucose 98 mg/dL (70-99); Potassium 4.3 mmol/L (3.3-5.1)
== END | disposition home or self-care (01) ==
PROVIDERS: PCP Internal Medicine; Referring Provider Internal Medicine; Visit Provider Internal Medicine
DX: D64.9 Anemia, unspecified (principal)
CPT/HCPCS: 36415; 80053; 85025